=== PATIENT | male | born 1940 | race African-American/Black ===

== ENCOUNTER 2016-05-31 10:14 | Emergency (ER) ==
[2016-05-31] MEDS ORDERED: ASPIRIN PO STA (10:36)
[2016-05-31] MEDS ORDERED: NITROGLYCERIN SL PRN (10:36)
--- NOTE | 2016-05-31 10:41 | EKG Report ---
Test Performed on : 05/31/2016 10:27:02 AM Test Reason : SOB Blood Pressure : / mmHG Vent. Rate : 073 BPM Atrial Rate : 073 BPM P-R Int : 150 ms QRS Dur : 100 ms QT Int : 398 ms P-R-T Axes : 061 009 122 degrees QTc Int : 438 ms Normal sinus rhythm. Possible Inferior infarct , age undetermined Abnormal ECG When compared with ECG of 30-APR-2016 06:32, premature ventricular complexes. are no longer present premature atrial complexes. are no longer present Borderline criteria for Inferior infarct are now present T wave inversion no longer evident in Anterior leads QT has shortened Unconfirmed Result
--- NOTE | 2016-05-31 10:43 | PROVIDER DOCUMENTATION ---
HPI-Cardiac General - General Chief Complaint: Shortness of Breath Stated Complaint: SOB Time Seen by Provider: 05/31/16 10:30 Source: patient Allergies/Adverse Reactions: Patient Allergies Allergy/AdvReac Type Severity Reaction Status Date / Time No Known Allergies Allergy Verified 04/29/16 06:18 Home Medications: Home Medication List Medication Instructions Recorded Confirmed Last Taken Type Cilostazol 100 mg PO BID 04/29/16 05/31/16 05/31/16 08:00 History Cyclobenzaprine [Flexeril] 10 mg PO QAM 04/29/16 05/31/16 05/31/16 08:00 History Donepezil [Aricept] 5 mg PO QHS 04/29/16 05/31/16 05/30/16 20:00 History Furosemide [Lasix] 40 mg PO QAM 04/29/16 05/31/16 05/31/16 08:00 History Hydrocodone/Acetaminophen [[place] 1 each PO TID 04/29/16 05/31/16 05/31/16 08:00 History 10-325 Tablet] Insulin Detemir [Levemir] 60 units SUBQ QA 04/29/16 05/31/16 05/30/16 08:00 History Isosorbide Mononitrate E.r. [Imdur] 60 mg PO QAM 04/29/16 05/31/16 05/31/16 08: 00 History Metformin [Glucophage] 2,000 mg PO QAM 04/29/16 05/31/16 05/31/16 08:00 History Metoprolol Succinate E.r. [Toprol 100 mg PO QAM 04/29/16 05/31/16 05/31/16 08: 00 History Xl] Omeprazole 40 mg PO QAM 04/29/16 05/31/16 05/31/16 08:00 History Potassium Chloride 1 tab PO QAM 04/29/16 05/31/16 05/31/16 07:00 History Pravastatin Sodium 80 mg PO QHS 04/29/16 05/31/16 05/31/16 07:00 History Sertraline HCl [Zoloft] 100 mg PO QAM 04/29/16 05/31/16 05/31/16 07:00 History Tamsulosin [Flomax] 0.4 mg PO DAILY 04/29/16 05/31/16 05/31/16 07:00 History Valsartan [Diovan] 320 mg PO QAM 04/29/16 05/31/16 05/31/16 07:00 History Amiodarone [Cordarone] 200 mg PO BID 05/31/16 05/31/16 05/31/16 08:00 History Rivaroxaban [Xarelto] 10 mg PO DAILY 05/31/16 05/31/16 05/31/16 08:00 History - History of Present Illness-Cardiac Nature of Presenting Problem: Had CABG 10 days ago. About 1 week ago began to develop dyspnea with extertion. Has cough, no CP , no fever., no abdominal pain Quality of Pain: reports: none Onset/Duration: 1 week ago (onset shortness of breath) Context/Activities at Onset: reports: light activity History of arrythmia: reports: A-Fib Nitro Today/Relief: reports: no nitro taken today Review of Systems - Adult - REVIEW OF SYSTEMS - ADULT Constitutional: reports: no symptoms reported Eyes: reports: no symptoms reported Ears, Nose, Mouth & Throat: reports: no symptoms reported Cardiovascular: reports: see HPI (recent CABG) Respiratory: reports: cough, shortness of breath Gastrointestinal: reports: no symptoms reported Genitourinary: reports: no symptoms reported Musculoskeletal: reports: no symptoms reported Integumentary: reports: no symptoms reported Past History - Adult - PAST MEDICAL HISTORY-ADULT Review of Records: reports: Old Records Reviewed, Medications Reviewed Major Childhood Illnesses: reports: denies history Cardiovascular: reports: cardiac disease, A-Fib (in past), HTN, hyperlipidemia Respiratory: reports: COPD Gastrointestinal: reports: denies history Obstetrical/Gynecological: reports: denies history Genitourinary: reports: denies history Musculoskeletal: reports: chronic pain, neck/back injury, orthopedic injury Neurological: reports: denies history Psychiatric: reports: denies history Endocrine/Immune: reports: Diabetes Other Conditions: reports: denies history - PRIOR SURGERIES/PROCEDURES Surgical/Procedure History: reports: orthopedic (extremity) (knee surgery), back /neck (back) - PRIOR HOSPITALIZATIONS Prior Hospitalizations: reports: for similar symptoms - IMMUNIZATION STATUS Childhood Immunizations: See Nurse Assessment Flu Vaccine: See Nurse Assessment - FAMILY HISTORY Family History: reviewed, not pertinent Physical Exam-General - PHYSICAL EXAM-ADULT Initial Vital Signs Reviewed: Yes - CONSTITUTIONAL General Appearance: appears well, alert, no apparent distress - EYES Eyes: PERRL/EOMI - HEAD, EARS, NOSE, MOUTH & THROAT HENMT: normocephalic/atraumatic, normal ENT inspection - NECK Neck: non-tender, full range of motion, supple, normal inspection - RESPIRATORY Respiratory: chest non-tender, decreased breath sounds (B) - CARDIOVASCULAR Cardiovascular: regular rate, rhythm, no edema, no gallop, no murmur - GASTROINTESTINAL (ABDOMEN) Abdominal Exam: normal bowel sounds, non tender, soft, no organomegaly - GENITOURINARY Male Genitalia: deferred Rectal Exam: deferred - LYMPHATIC Lymphatic: no adenopathy - MUSCULOSKELETAL Back Exam: normal inspection, no CVA tenderness, no vertebral tenderness Extremity: normal range of motion, non-tender, normal inspection, no pedal edema - NEUROLOGIC Neurologic: grossly normal, no motor/sensory deficits Progress - PLAN OF CARE/RESULTS Progress/Plan/Lab Results: Laboratory Tests 05/31/16 05/31/16 05/31/16 11:39 11:39 11:39 WBC 5.24 RBC 3.76 L Hgb 9.9 L Hct 33.5 L MCV 89.1 MCH 26.3 L MCHC 29.6 L RDW Std Deviation 15.8 H Plt Count 298 MPV 9.8 Immature Gran % (Auto) 0.0 Neut % (Auto) 72.0 Lymph % (Auto) 17.7 L [place] % (Auto) 7.6 Eos % (Auto) 2.5 Baso % (Auto) 0.2 Immature Gran # (Auto) 0.00 Neut # (Auto) 3.77 Lymph # (Auto) 0.93 L [place] # (Auto) 0.40 Eos # (Auto) 0.13 Baso # (Auto) 0.01 PT INR PTT (Actin FS) D-Dimer 2.01 H Sodium 137 Potassium 3.5 Chloride 97 L Carbon Dioxide 28 Anion Gap 12 BUN 9 Creatinine 0.5 L Estimated GFR/1.73 m2 > 60 BUN/Creatinine Ratio 18 Glucose 126 H Calculated Osmolality 274 Calcium 8.9 Magnesium 1.8 Total Bilirubin 0.62 AST 23 ALT 26 Alkaline Phosphatase 74 Creatine Kinase 69 Troponin T Yys-D-Aedorqaebna Pept Total Protein 6.4 Albumin 3.5 Globulin 2.9 Albumin/Globulin Ratio 1.2 0305/31/16 05/31/16 11:39 11:39 11:39 WBC RBC Hgb Hct MCV MCH MCHC RDW Std Deviation Plt Count MPV Immature Gran % (Auto) Neut % (Auto) Lymph % (Auto) [place] % (Auto) Eos % (Auto) Baso % (Auto) Immature Gran # (Auto) Neut # (Auto) Lymph # (Auto) [place] # (Auto) Eos # (Auto) Baso # (Auto) PT 13.0 H INR 1.22 PTT (Actin FS) 30.1 D-Dimer Sodium Potassium Chloride Carbon Dioxide Anion Gap BUN Creatinine Estimated GFR/1.73 m2 BUN/Creatinine Ratio Glucose Calculated Osmolality Calcium Magnesium Total Bilirubin AST ALT Alkaline Phosphatase Creatine Kinase Troponin T < 0.010 Qvw-A-Yvknmehtkyy Pept 1156 H Total Protein Albumin Globulin Albumin/Globulin Ratio Orders Category Date Time Status Blood Glucose Finger Stick [FSBS/Accucheck Result] NOW Care 05/31/16 11:57 Active Cardiac Monitoring DIRECTED Care 05/31/16 10:37 Active Oxygen Therapy- ED Nursing DIRECTED Care 05/31/16 10:37 Active Saline Loc NOW Care 05/31/16 10:37 Active CHEST-PORTABLE [RAD] Stat Exams 05/31/16 10:39 Draft CBC WITH ELECTRONIC DIFF [HEME] Stat Lab 05/31/16 11:39 Completed CK PROFILE [SP CHEM] Stat Lab 05/31/16 11:39 Completed COMPREHENSIVE METABOLIC PANEL [CHEM] Stat Lab 05/31/16 11:39 Completed D-DIMER [CHEM] Stat Lab 05/31/16 11:39 Completed MAGNESIUM [CHEM] Stat Lab 05/31/16 11:39 Completed PRO B-NATRIURETIC PEPTIDE Stat Lab 05/31/16 11:39 Completed PROTIME WITH INR [COAG] Stat Lab 05/31/16 11:39 Completed PTT [COAG] Stat Lab 05/31/16 11:39 Completed TROPONIN T Stat Lab 05/31/16 11:39 Completed Aspirin Med 05/31/16 10:36 Discontinued 325 mg PO STAT STA Furosemide [Lasix] Med 05/31/16 11:22 Discontinued 40 mg IV NOW ONE Nitroglycerin Sl [Nitroglycerin] Med 05/31/16 10:36 Active 0.4 mg SL Q5M PRN PRN EKG [EKG] Stat Ther 05/31/16 10:22 Draft Vital Signs Temp Pulse Resp BP Pulse Ox 05/31/16 12:40 75 16 141/76 99 05/31/16 10:17 97.8 F 73 22 167/76 100 No Known Allergies Allergy (Verified 04/29/16 06:18) Cilostazol 100 mg PO BID 04/29/16 Cyclobenzaprine [Flexeril] 10 mg PO QAM 04/29/16 Donepezil [Aricept] 5 mg PO QHS 04/29/16 Furosemide [Lasix] 40 mg PO QAM 04/29/16 Hydrocodone/Acetaminophen [[place] 10-325 Tablet] 1 each PO TID 04/29/16 Insulin Detemir [Levemir] 60 units SUBQ QA 04/29/16 Isosorbide Mononitrate E.r. [Imdur] 60 mg PO QAM 04/29/16 Metformin [Glucophage] 2,000 mg PO QAM 04/29/16 Metoprolol Succinate E.r. [Toprol Xl] 100 mg PO QAM 04/29/16 Omeprazole 40 mg PO QAM 04/29/16 Potassium Chloride 1 tab PO QAM 04/29/16 Pravastatin Sodium 80 mg PO QHS 04/29/16 Sertraline HCl [Zoloft] 100 mg PO QAM 04/29/16 Tamsulosin [Flomax] 0.4 mg PO DAILY 04/29/16 Valsartan [Diovan] 320 mg PO QAM 04/29/16 Amiodarone [Cordarone] 200 mg PO BID 05/31/16 Rivaroxaban [Xarelto] 10 mg PO DAILY 05/31/16 Laboratory 05/31/16 05/31/16 05/31/16 11:39 11:39 11:39 WBC RBC Hgb Hct MCV MCH MCHC RDW Std Deviation Plt Count MPV Immature Gran % (Auto) Neut % (Auto) Lymph % (Auto) [place] % (Auto) Eos % (Auto) Baso % (Auto) Immature Gran # (Auto) Neut # (Auto) Lymph # (Auto) [place] # (Auto) Eos # (Auto) Baso # (Auto) PT 13.0 H INR 1.22 PTT (Actin FS) 30.1 D-Dimer Sodium Potassium Chloride Carbon Dioxide Anion Gap BUN Creatinine Estimated GFR/1.73 m2 BUN/Creatinine Ratio Glucose Calculated Osmolality Calcium Magnesium Total Bilirubin AST ALT Alkaline Phosphatase Creatine Kinase Troponin T < 0.010 Vyl-K-Gyeuqfejagr Pept 1156 H Total Protein Albumin Globulin Albumin/Globulin Ratio 05/31/16 05/31/16 05/31/16 11:39 11:39 11:39 WBC 5.24 RBC 3.76 L Hgb 9.9 L Hct 33.5 L MCV 89.1 MCH 26.3 L MCHC 29.6 L RDW Std Deviation 15.8 H Plt Count 298 MPV 9.8 Immature Gran % (Auto) 0.0 Neut % (Auto) 72.0 Lymph % (Auto) 17.7 L [place] % (Auto) 7.6 Eos % (Auto) 2.5 Baso % (Auto) 0.2 Immature Gran # (Auto) 0.00 Neut # (Auto) 3.77 Lymph # (Auto) 0.93 L [place] # (Auto) 0.40 Eos # (Auto) 0.13 Baso # (Auto) 0.01 PT INR PTT (Actin FS) D-Dimer 2.01 H Sodium 137 Potassium 3.5 Chloride 97 L Carbon Dioxide 28 Anion Gap 12 BUN 9 Creatinine 0.5 L Estimated GFR/1.73 m2 > 60 BUN/Creatinine Ratio 18 Glucose 126 H Calculated Osmolality 274 Calcium 8.9 Magnesium 1.8 Total Bilirubin 0.62 AST 23 ALT 26 Alkaline Phosphatase 74 Creatine Kinase 69 Troponin T Gwv-A-Jclztcvfxcv Pept Total Protein 6.4 Albumin 3.5 Globulin 2.9 Albumin/Globulin Ratio 1.2 - EKG 1 Time of EKG reading by physician:: 10:40 EKG Read and Signed by:: Sunshine Forbes Rate: 73 Rhythm: nsr [place]: normal QRS: normal [place] Interval: normal ST Wave: non-specific ST changes - XRAY 1 XRAY Study: Chest (cardiomegally) Impression: Abnormal XRAY Interpretation: cardiomegally, pulmonary edema - CONSULTS/PCP/HOSPITALIST Notification #1 *Consult/PCP/Hospitalist*: Dr Mirza's [employer] [facility]- [facility] [facility] surgery Time Discussed: 13:20 Reason/Comments: transfer to [facility] ER #2 Consult: Dr Marcus [facility] Time Discussed: 13:20 Reason/Comments: will accept patient in transfer, awaiting bed for admit to Dr Mirza - CHANGE OF SHIFT REPORT (ED Provider) Tentative Impression of Patient: 10 days post CABG with increasing SOB- CHF. Improving after IV lasix Departure - Departure Time of Disposition Order: 13:23 DIAGNOSIS: SOB (shortness of breath), Congestive heart failure Disposition: ACUTE [facility] 02 Certified Medical Emergency: Emergent Condition: Serious Referrals: Shirley Roa MD [Primary Care Provider] -
[2016-05-31] MEDS ORDERED: LASIX IV ONE (11:22)
[2016-05-31 12:10] LABS: MANUAL DIFF NEEDED? NO
[2016-05-31 12:16] LABS: BASO% 0.2 % (0.0-0.8); EOS# 0.13 X1000 (0.0-0.7); EOS% 2.5 % (0.0-10.0); HEMATOCRIT 33.5 % (42.0-52.0); HEMOGLOBIN 9.9 g/dL (14.0-18.0); LYMPH# 0.93 X1000 (1.2-3.4); LYMPH% 17.7 % (20.5-51.1); MCH 26.3 PG (27-31); MCHC 29.6 g/dL (33-37); MCV 89.1 FL (81-99); MONO% 7.6 % (1.7-9.3); MPV 9.8 FL (7.4-10.4); PLT 298 X1000 (130-400); RBC 3.76 XMIL (4.7-6.1)
--- NOTE | 2016-05-31 12:17 | Diag Imaging Result Document ---
PROCEDURE NAME: CHEST-PORTABLE - 05/31/2016 PORTABLE CHEST: COMPARISON: 04/30/2016. FINDINGS: Sternal wires are present. The heart is enlarged. There are increased interstitial markings believed to be a combination of pulmonary venous and possible fibrosis or atelectasis. There may be a small left effusion. IMPRESSION: Cardiomegaly with pulmonary edema.
[2016-05-31 12:27] LABS: INR 1.22; PTT 30.1 Seconds (22.0-36.0)
[2016-05-31 12:36] LABS: AGAP 12; ALBUMIN 3.5 g/dL (3.5-5.0); ALKALINE PHOSPHATASE 74 U/L (32-122); BUN 9 mg/dL (8-22); CALCIUM 8.9 mg/dL (8.8-10.2); CHLORIDE 97 mmol/L (98-107); CK PROFILE 69 U/L (24-204); COSMO 274; GOT 23 U/L (10-34); GPT 26 U/L (10-44); MAGNESIUM 1.8 mg/dL (1.5-2.7); POTASSIUM 3.5 mmol/L (3.5-5.1); SODIUM 137 mmol/L (136-145); TCO2 28 mmol/L (25-35); TOTAL BILIRUBIN 0.62 mg/dL (0.20-1.00); TOTAL PROTEIN 6.4 g/dL (6.3-8.3)
[2016-05-31 13:33] VITALS: BP 128/71
[2016-05-31] MEDS ORDERED: NS 500 ML IV ONE (14:05)
[2016-05-31] MEDS ORDERED: NS 500 ML ONE (14:07)
== END 2016-05-31 14:16 | disposition short-term general hospital (02) ==
LOC: ED 10:14
DX: I50.9 Heart failure, unspecified (principal); R06.02 Shortness of breath; I51.7 Cardiomegaly; Z95.1 Presence of aortocoronary bypass graft; I48.91 Unspecified atrial fibrillation; R06.09 Other forms of dyspnea; R05 Cough; I10 Essential (primary) hypertension; Z79.899 Other long term (current) drug therapy; E78.5 Hyperlipidemia, unspecified; J44.9 Chronic obstructive pulmonary disease, unspecified; G89.29 Other chronic pain; E11.9 Type 2 diabetes mellitus without complications; Z79.01 Long term (current) use of anticoagulants
CPT/HCPCS: 71010; 80053; 82550; 82948; 83735; 83880; 84484; 85025; 85379; 85610; 85730; 93005; 96374; J1940; J7040

== ENCOUNTER 2016-07-16 12:50 | Inpatient (IN) ==
[2016-07-16] MEDS ORDERED: ASPIRIN PO STA (13:04)
[2016-07-16 13:29] LABS: MANUAL DIFF NEEDED? NO
[2016-07-16 13:32] LABS: BASO% 0.4 % (0.0-0.8); EOS# 0.12 X1000 (0.0-0.7); EOS% 2.2 % (0.0-10.0); HEMATOCRIT 36.4 % (42.0-52.0); HEMOGLOBIN 10.8 g/dL (14.0-18.0); LYMPH# 1.18 X1000 (1.2-3.4); LYMPH% 21.3 % (20.5-51.1); MCH 25.8 PG (27-31); MCHC 29.7 g/dL (33-37); MCV 86.9 FL (81-99); MONO# 0.43 X1000 (0.11-0.59); MONO% 7.8 % (1.7-9.3); MPV 10.9 FL (7.4-10.4); NEUT% 68.3 % (42.2-75.2); PLT 221 X1000 (130-400); RBC 4.19 XMIL (4.7-6.1)
[2016-07-16 14:02] LABS: AGAP 13; ALBUMIN 3.6 g/dL (3.5-5.0); ALKALINE PHOSPHATASE 70 U/L (32-122); BUN 10 mg/dL (8-22); CALCIUM 9.1 mg/dL (8.8-10.2); CHLORIDE 105 mmol/L (98-107); CK PROFILE 97 U/L (24-204); COSMO 290; GOT 22 U/L (10-34); GPT 27 U/L (10-44); MAGNESIUM 1.8 mg/dL (1.5-2.7); POTASSIUM 3.3 mmol/L (3.5-5.1); SODIUM 145 mmol/L (136-145); TCO2 27 mmol/L (25-35); TOTAL BILIRUBIN 0.73 mg/dL (0.20-1.00); TOTAL PROTEIN 6.6 g/dL (6.3-8.3)
--- NOTE | 2016-07-16 14:24 | EKG Report ---
Test Performed on : 07/16/2016 12:55:47 PM Test Reason : Chest Pain Blood Pressure : / mmHG Vent. Rate : 103 BPM Atrial Rate : 100 BPM P-R Int : 000 ms QRS Dur : 100 ms QT Int : 362 ms P-R-T Axes : 000 015 192 degrees QTc Int : 474 ms Undetermined rhythm Cannot rule out Inferior infarct , age undetermined Abnormal ECG When compared with ECG of 03-JUL-2016 01:39, Current undetermined rhythm precludes rhythm comparison, needs review Unconfirmed Result
[2016-07-16] MEDS ORDERED: LASIX IV ONE (14:34)
[2016-07-16] MEDS ORDERED: POTASSIUM CHLORIDE 20% LIQUID PO ONE (14:36)
--- NOTE | 2016-07-16 14:51 | Diag Imaging Result Document ---
PROCEDURE NAME: CHEST-2 VIEWS - 07/16/2016 FRONTAL AND LATERAL CHEST, 2 VIEWS. COMPARISON: Compared to 05/31/2016. FINDINGS: Sternal wires are present. The heart remains enlarged. The vessels are less distended. There are small pleural effusions. No consolidation. IMPRESSION: Cardiomegaly, but decreased pulmonary edema. [facility]
[2016-07-16] MEDS ORDERED: ALDACTONE PO ONE (14:57)
--- NOTE | 2016-07-16 14:59 | PROVIDER DOCUMENTATION ---
This chart was entered by Gagandeep Hernandez Scribe, acting as scribe for Olvin Moreno MD. HPI-Respiratory General - General Chief Complaint: Shortness of Breath Stated Complaint: elevated heart rate Time Seen by Provider: 07/16/16 13:01 Source: patient Allergies/Adverse Reactions: Patient Allergies Allergy/AdvReac Type Severity Reaction Status Date / Time No Known Allergies Allergy Verified 07/16/16 13:25 Home Medications: Home Medication List Medication Instructions Recorded Confirmed Last Taken Type Donepezil [Aricept] 5 mg PO QHS 04/29/16 07/16/16 07/02/16 History Furosemide [Lasix] 40 mg PO QAM 04/29/16 07/16/16 07/02/16 History Insulin Detemir [Levemir] 60 units SUBQ QAM 04/29/16 07/16/16 07/02/16 History Omeprazole 40 mg PO QAM 04/29/16 07/16/16 07/02/16 History Potassium Chloride 10 meq PO QAM 04/29/16 07/16/16 07/02/16 History Pravastatin Sodium 80 mg PO QHS 04/29/16 07/16/16 07/02/16 History Sertraline HCl [Zoloft] 100 mg PO QAM 04/29/16 07/16/16 07/02/16 History Tamsulosin [Flomax] 0.4 mg PO QAM 04/29/16 07/16/16 07/02/16 History Rivaroxaban [Xarelto] 15 mg PO HS 05/31/16 07/16/16 07/02/16 History Aspirin 81 mg PO QAM 07/03/16 07/16/16 07/02/16 History Cephalexin [Keflex] 500 mg PO BID 07/03/16 07/16/16 07/02/16 History Insulin Detemir [Levemir] 60 unit SUBQ QAM 07/03/16 07/16/16 07/02/16 History Iron,Carbonyl/Vit C/Vit B12/FA [Fe 1 each PO BID 07/03/16 07/16/16 07/02/16 History C Plus Tablet] Lisinopril 2.5 mg PO HS 07/03/16 07/16/16 07/02/16 History Metoprolol [Lopressor] 25 mg PO BID 07/03/16 07/16/16 07/02/16 History - History of Present Illness-Resp Nature of Presenting Problem: PT C/O SOB WHILE WALKING ACROSS THE ROOM ONSET 2 MONTHS AGO ALSO C/O PALPITATIONS. Quality of Pain: reports: none Severity in ED: reports: mild Onset/Duration: reports: other (2 MONTHS) Timing: reports: still present Cough Quality/Degree: reports: no cough Episode Frequency: no prior episodes Current Respiratory Medication Therapy: Initiated none Modifying Factors: improves with: exertion Associated Symptoms: reports: shortness of breath. denies: chest pain/soreness , fever/chills, wheezing Similar Symptoms Previously?: No Recently seen or treated by another doctor?: No Review of Systems - Adult - REVIEW OF SYSTEMS - ADULT Constitutional: denies: chills, fever, night sweats Ears, Nose, Mouth & Throat: denies: ear pain, nose pain, throat pain Cardiovascular: reports: irregular heart rate, palpitations. denies: chest pain Respiratory: reports: shortness of breath. denies: cough, wheezing Gastrointestinal: denies: abdominal pain, diarrhea, nausea, vomiting Genitourinary: denies: dysuria, flank pain, hematuria Musculoskeletal: denies: back pain, joint pain, neck pain Integumentary: denies: hives, itching, rash Neurological: denies: headache/migraines, numbness, tremors All Other Systems: Reviewed and Negative Past History - Adult - PAST MEDICAL HISTORY-ADULT Review of Records: reports: Nursing Assessment Review, Medications Reviewed Cardiovascular: reports: cardiac disease, A-Fib (in past), HTN, hyperlipidemia Respiratory: reports: COPD Musculoskeletal: reports: chronic pain, neck/back injury, orthopedic injury Neurological: reports: CVA Endocrine/Immune: reports: Diabetes - PRIOR SURGERIES/PROCEDURES Surgical/Procedure History: reports: CABG, cholecystectomy, orthopedic ( extremity) (knee surgery), back/neck (back) - PRIOR HOSPITALIZATIONS Prior Hospitalizations: reports: for similar symptoms - IMMUNIZATION STATUS Childhood Immunizations: See Nurse Assessment Flu Vaccine: See Nurse Assessment - FAMILY HISTORY Family History: reviewed, not pertinent - SOCIAL HISTORY Smoking: denies Substance Use: none/never Alcohol Use Frequency: never Living Situation: family Physical Exam-General - PHYSICAL EXAM-ADULT Initial Vital Signs Reviewed: Yes - CONSTITUTIONAL General Appearance: appears well, alert, no apparent distress - HEAD, EARS, NOSE, MOUTH & THROAT HENMT: normocephalic/atraumatic, moist mucous membranes, normal ENT inspection - NECK Neck: non-tender, full range of motion, supple, normal inspection - RESPIRATORY Respiratory: chest non-tender, lungs clear, normal breath sounds, no pleuratic chest pain, no respiratory distress, no accessory muscle use - CARDIOVASCULAR Cardiovascular: normal peripheral pulses, no edema, no gallop, no JVD, no murmur , irregularly irregular - GASTROINTESTINAL (ABDOMEN) Abdominal Exam: normal bowel sounds, non tender, soft, no organomegaly, no pulsatile mass - LYMPHATIC Lymphatic: no adenopathy - MUSCULOSKELETAL Back Exam: normal inspection, no CVA tenderness, no vertebral tenderness Extremity: normal range of motion, non-tender, normal gait, normal inspection, no pedal edema, no calf tenderness, normal capillary refill, pelvis stable - SKIN Integumentary: normal color, normal turgor, warm/dry - PSYCHIATRIC Psych/Mental Status: normal mood/affect, normal thought content, normal thought process, oriented x 3 Progress - PLAN OF CARE/RESULTS Progress/Plan/Lab Results: Vital Signs - 8 hr 07/16/16 12:52 Temperature 98.1 F Pulse Rate 67 Respiratory Rate 20 Blood Pressure 150/93 O2 Sat by Pulse Oximetry 98 Laboratory Results - last 24 hr 07/16/16 07/16/16 07/16/16 13:15 13:15 13:15 WBC 5.53 RBC 4.19 L Hgb 10.8 L Hct 36.4 L MCV 86.9 MCH 25.8 L MCHC 29.7 L RDW Std Deviation 16.6 H Plt Count 221 MPV 10.9 H Immature Gran % (Auto) 0.0 Neut % (Auto) 68.3 Lymph % (Auto) 21.3 [place] % (Auto) 7.8 Eos % (Auto) 2.2 Baso % (Auto) 0.4 Immature Gran # (Auto) 0.00 Neut # (Auto) 3.78 Lymph # (Auto) 1.18 L [place] # (Auto) 0.43 Eos # (Auto) 0.12 Baso # (Auto) 0.02 D-Dimer 0.34 Sodium 145 Potassium 3.3 L Chloride 105 Carbon Dioxide 27 Anion Gap 13 BUN 10 Creatinine 0.5 L Estimated GFR/1.73 m2 > 60 BUN/Creatinine Ratio 20 Glucose 143 H Calculated Osmolality 290 Calcium 9.1 Magnesium 1.8 Total Bilirubin 0.73 AST 22 ALT 27 Alkaline Phosphatase 70 Creatine Kinase 97 Troponin T Tmq-F-Uznzzjpqgjj Pept Total Protein 6.6 Albumin 3.6 Globulin 3.0 Albumin/Globulin Ratio 1.2 07/16/16 07/16/16 13:15 13:15 WBC RBC Hgb Hct MCV MCH MCHC RDW Std Deviation Plt Count MPV Immature Gran % (Auto) Neut % (Auto) Lymph % (Auto) [place] % (Auto) Eos % (Auto) Baso % (Auto) Immature Gran # (Auto) Neut # (Auto) Lymph # (Auto) [place] # (Auto) Eos # (Auto) Baso # (Auto) D-Dimer Sodium Potassium Chloride Carbon Dioxide Anion Gap BUN Creatinine Estimated GFR/1.73 m2 BUN/Creatinine Ratio Glucose Calculated Osmolality Calcium Magnesium Total Bilirubin AST ALT Alkaline Phosphatase Creatine Kinase Troponin T < 0.010 Fop-F-Roqakzjdnjt Pept 1398 H Total Protein Albumin Globulin Albumin/Globulin Ratio Orders Category Date Time Status Cardiac Monitoring DIRECTED Care 07/16/16 13:04 Active Oxygen Therapy- ED Nursing DIRECTED Care 07/16/16 13:04 Active Saline Loc NOW Care 07/16/16 13:04 Active CHEST-2 VIEWS [RAD] Stat Exams 07/16/16 13:04 Draft CBC WITH ELECTRONIC DIFF [HEME] Stat Lab 07/16/16 13:15 Completed CK PROFILE [SP CHEM] Stat Lab 07/16/16 13:15 Completed COMPREHENSIVE METABOLIC PANEL [CHEM] Stat Lab 07/16/16 13:15 Completed D-DIMER [CHEM] Stat Lab 07/16/16 13:15 Completed MAGNESIUM [CHEM] Stat Lab 07/16/16 13:15 Completed PRO B-NATRIURETIC PEPTIDE Stat Lab 07/16/16 13:15 Completed TROPONIN T Stat Lab 07/16/16 13:15 Completed Aspirin Med 07/16/16 13:04 Discontinued 325 mg PO STAT STA Furosemide [Lasix] Med 07/16/16 14:34 Discontinued 60 mg IV NOW ONE Potassium Chloride 20% Liquid Med 07/16/16 14:36 Discontinued 40 meq PO NOW ONE Spironolactone [Aldactone] Med 07/16/16 14:57 Once 25 mg PO NOW ONE EKG [EKG] Stat Ther 07/16/16 13:04 Draft Result Diagrams: 07/16/16 13:15 07/16/16 13:15 - REASSESSMENT Reassessment #1 Time Reassessed: 14:56 Status: unchanged - EKG 1 Time of EKG reading by physician:: 12:55 EKG Read and Signed by:: Olvin Moreno EKG Interpretation (*Must complete 3 of following elements*): Abnormal Rate: 103 Rhythm: 2ND DEGREE TYPE 1 [place]: normal QRS: normal ST Wave: normal - CONSULTS/PCP/HOSPITALIST Notification #1 *Consult/PCP/Hospitalist*: Dr Carrillo Time Discussed: 14:57 Reason/Comments: he prefers to admit patient and see him in counsultation Departure - Departure Time of Disposition Decision: 14:58 DIAGNOSIS: Second degree heart block CHF (congestive heart failure), NYHA class II Qualifiers: Congestive heart failure type: diastolic Congestive heart failure chronicity: chronic Qualified Code(s): I50.32 - Chronic diastolic (congestive) heart failure Disposition: HOME 01 Certified Medical Emergency: Emergent Condition: Stable Referrals and Follow-Ups: Shirley Roa MD [Primary Care Provider] - - Critical Care Note This patient required my direct & personal management of CC.: No This chart was documented by the indicated scribe, (Gagandeep Hernandez Scribe) and accurately reflects the services I performed and decisions made by me, Olvin Moreno MD, as attested by the provider's signature.
[2016-07-16] MEDS ORDERED: SALINE LOCK IV FLUID XX ONE (18:02)
[2016-07-16] MEDS ORDERED: DUONEB (A & A) INH PRN (18:33)
[2016-07-16] MEDS: DUONEB (A & A) INH SCH ×2 (19:40→23:05)
[2016-07-16 19:49] LABS: HEMOGLOBIN A1C 6.2 % (4.8-6.0)
--- NOTE | 2016-07-16 20:04 | HISTORY AND PHYSICAL ---
PRIMARY CARE PHYSICIAN: Shirley Roa MD. COLOR ROOM ATTENDANT: Dr. Bertarm Magdaleno at [facility]. CHIEF COMPLAINT: Shortness of breath. HISTORY OF PRESENT ILLNESS: Mr. Austin is a 75-year-old male with a history of what looks to be a chronic atrial fibrillation, hypertension, COPD with nocturnal oxygen and severe CAD who recently had a CABG done at [facility] in April of this year who presents with progressive shortness of breath and weight gain over the past few days. He denies any chest pain, but reports that he has become progressively short of breath with increased abdominal distention over the past 3-4 days. He denies any lower extremity edema, but reports orthopnea. He denies any fevers or chills. He does report cough with clear sputum production. He denies any palpitations. No abdominal pain, no dysuria and no diarrhea. He came to the ER today for his shortness of breath and weight gain. His chest x-ray showed some pulmonary vascular congestion with cardiomegaly. His proBNP was noted to be almost 1400. He was given IV Lasix in the ER and is now going to be admitted for congestive heart failure exacerbation. His initial set of cardiac enzymes are negative. PAST MEDICAL HISTORY: 1. Severe CAD status post CABG in April of this year. 2. COPD on home O2 at night. 3. Congestive heart failure, diastolic, with last EF on heart catheterization of 50%. 4. Hypertension. 5. Diabetes. 6. Hyperlipidemia. 7. History of intracranial bleed. 8. Atrial fibrillation. 9. GERD. 10. Iron deficiency anemia. PAST SURGICAL HISTORY: 1. CABG. 2. Left knee arthroplasty. 3. Multiple back surgeries. 4. Cholecystectomy. 5. Cataract surgery. SOCIAL HISTORY: Patient quit smoking 13 or 14 years ago. He denies alcohol or drug use. His is at the bedside. He is retired. FAMILY HISTORY: Significant for CAD, DE, stomach cancer and diabetes. REVIEW OF SYSTEMS: Fourteen-point review of systems obtained and found to be negative with the exception of the HPI. ALLERGIES: No known drug allergies. HOME MEDICATIONS: Aspirin 81 mg daily. Aricept 5 mg at bedtime, Lasix 40 mg a.m., Levemir 60 units subcutaneous a.m., Icar C, 1 b.i.d., lisinopril 2.5 mg at bedtime, Lopressor 25 mg b.i.d., Omeprazole 40 mg a.m., KCl 10 mEq p.o. a.m., pravastatin 80 mg at bedtime, Xarelto 15 mg at bedtime, Zoloft 100 mg a.m., Flomax 0.4 mg a.m. PHYSICAL EXAMINATION: VITAL SIGNS: Blood pressure is 135/81, heart rate 74, respiratory rate 18, O2 saturation 100% on 2 L nasal cannula. Temperature is 98 degrees. GENERAL: This is an obese male, lying in hospital bed in no acute distress. NEUROLOGIC: Nonfocal. The patient is awake and alert. HEENT: Head is atraumatic and normocephalic. His pupils are equal, round, reactive to light. Oral mucosa is moist. Trachea is midline. CHEST: Diminished at the bases with crackles bilaterally. CARDIOVASCULAR: Regularly irregular rate and rhythm. S1-S2 is noted. GI: Slightly distended, but soft. Nontender to palpation. Bowel sounds are hypoactive. EXTREMITIES: Trace edema. Pulses diminished, but palpable bilaterally. DIAGNOSTIC DATA: Chest x-ray, increased pulmonary vascular congestion with cardiomegaly, although inspiration is suboptimal. EKG shows atrial flutter versus fibrillation. WBC 5.53, hemoglobin 10.8, hematocrit 36.4, platelet count 221,000, D-dimer 0.34, sodium 145, potassium 3.3, chloride 105, CO2 27, anion gap 13, BUN 10, creatinine is 0.5, glucose 143, calcium 9.1, magnesium 1.8. LFTs within normal limits. Troponin and CKs are normal. ProBNP 1398, albumin 3.6. ASSESSMENT AND PLAN: 1. Acute on chronic heart failure: We will continue IV diuresis to an edema free state. Follow strict input and output and daily weights. We will consult Cardiology and recheck an echocardiogram given the fact that he has had recent bypass surgery. We will continue to trend his enzymes and continue his home medications. 2. Diabetes mellitus: We will continue his home medications and add pattern blood sugars and sliding scale insulin. We will also recheck a hemoglobin A1c. 3. Chronic obstructive pulmonary disease: Currently not in exacerbation. We will continue at bedtime at bedtime O2 and add p.r.n. medications. 4. Iron deficiency anemia: Chronic and stable, continue his Icar C. 5. Gastroesophageal reflux disease: Chronic and stable, continue his omeprazole. 6. Atrial fibrillation/flutter: Continue his rate control with metoprolol and anticoagulation with Xarelto. 7. Deep venous thrombosis prophylaxis is provided with his Xarelto. Further recommendations to follow. Dictated by RAHEEM Grant for Franki Hyde MD cc: RAHEEM Grant MD James Murphy, MD
[2016-07-16] MEDS: PRAVACHOL PO SCH (21:04)
[2016-07-16] MEDS: XARELTO PO SCH (21:04)
[2016-07-16] MEDS: LOPRESSOR PO SCH (21:04)
[2016-07-16] MEDS: PRINIVIL PO SCH (21:04)
[2016-07-16] MEDS: ARICEPT PO SCH (21:04)
[2016-07-16] MEDS: ICAR-C PLUS PO SCH (21:05)
[2016-07-16] MEDS: HUMALOG SUBQ SCH (23:09)
[2016-07-17] MEDS: DUONEB (A & A) INH SCH ×6 (03:30→23:10)
[2016-07-17] MEDS: LASIX IV SCH ×2 (06:00→17:07)
[2016-07-17] MEDS: HUMALOG SUBQ SCH ×4 (06:04→21:10)
[2016-07-17] MEDS ORDERED: INSULIN PEN NEEDLES ONE (06:05)
[2016-07-17 06:58] LABS: HEMATOCRIT 37.3 % (42.0-52.0); HEMOGLOBIN 10.8 g/dL (14.0-18.0); MCH 25.8 PG (27-31); RBC 4.19 XMIL (4.7-6.1)
[2016-07-17 07:08] LABS: AGAP 15; BUN 10 mg/dL (8-22); CALCIUM 9.2 mg/dL (8.8-10.2); CHLORIDE 101 mmol/L (98-107); COSMO 287; POTASSIUM 3.2 mmol/L (3.5-5.1); SODIUM 143 mmol/L (136-145); TCO2 27 mmol/L (25-35)
[2016-07-17 07:15] LABS: HDL 44 mg/dL (35-55); LDL 81 mg/dL; TRIGLYCERIDES 91 mg/dL (39-160); VLDL 18 mg/dL
[2016-07-17] MEDS: ASPIRIN PO SCH (08:08)
[2016-07-17] MEDS: PRILOSEC PO SCH (08:08)
[2016-07-17] MEDS: FLOMAX PO SCH (08:08)
[2016-07-17] MEDS: ZOLOFT PO SCH (08:08)
[2016-07-17] MEDS: LEVEMIR SUBQ SCH (08:09)
[2016-07-17] MEDS: LOPRESSOR PO SCH ×2 (08:09→21:02)
[2016-07-17] MEDS ORDERED: LEVEMIR INSULIN *HA SUBQ SCH (09:00)
[2016-07-17] MEDS ORDERED: CARDIZEM IV ONE (09:57)
[2016-07-17] MEDS ORDERED: CARDIZEM 100 MG/NS 100 MG/100 ML IVPB IV SCH ×2 (09:58→17:23)
[2016-07-17] MEDS: LANOXIN IV SCH ×2 (10:22→12:46)
[2016-07-17] MEDS ORDERED: KLOR-CON PO ONE (10:30)
--- NOTE | 2016-07-17 10:39 | PROGRESS NOTE ---
DATE: 07/17/2016 SUBJECTIVE: Today, Mr. Austin refers to be doing fine. He continues to have some residual shortness of breath. No chest pain. OBJECTIVE: Vital Signs: Blood pressure is 137/87, pulse is 130, respirations are 17, temperature is 98.7 degrees. General Examination: Mr. Austin is a 75-year-old, male. He is in bed, seems in a little bit of respiratory distress. HEENT: Mucosa is pink and moist. Anicteric and acyanotic. Neck: Supple. JVD is positive. Chest: Air entry is bilaterally reduced. There are diffuse bilateral posterior coarse crepitations. Cardiovascular: Irregularly irregular. No murmurs. No rubs. No gallops. Abdomen: Soft, distended, nontender. Questionable mild hepatomegaly with hepatojugular reflux. Extremities: About 1+ pedal edema. 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 There is no focal neurological deficit. Laboratory Data: WBC is 5.32, hemoglobin is 10.8, platelet count is 234,000. Chemistries reviewed. Sodium is 143, potassium is 3.2, chloride is 101, bicarb is 27. A chest x-ray done yesterday shows cardiomegaly with decreased pulmonary edema. EKG done yesterday on presentation did show possible groupings with atrial fibrillation/atrial flutter. CURRENT MEDICATIONS: 1. Aspirin 81 mg. 2. Digoxin 250 IV q.2 hours and then 250 once. 3. Digoxin drip. 4. Lasix 40 IV q.12. 5. Metoprolol 25 b.i.d. 6. Xarelto. ASSESSMENT: 1. Acute respiratory distress, likely secondary to pulmonary edema. 2. Acute on chronic congestive heart failure. The patient had an echocardiogram in June which showed an ejection fraction of 35-40% with global hypokinesis. Subsequently , patient had a left heart catheterization. 3. Coronary artery disease, status post left heart catheterization. 4. Chronic obstructive pulmonary disease, noted. 5. Atrial fibrillation/atrial flutter, currently in rapid ventricular response. PLAN: In general, I think Mr. Austin is stable. Continues to be in atrial fibrillation/atrial flutter with RVR. The patient is going to be transferred from the regular floor to the CCU. He has been started on digoxin and a Cardizem drip. We will continue monitoring his cardiopulmonary status. Cardiology is on board. cc: Franki Hyde MD MTDD
--- NOTE | 2016-07-17 10:46 | EKG Report ---
Test Performed on : 07/17/2016 09:43:54 AM Test Reason : afib Blood Pressure : / mmHG Vent. Rate : 099 BPM Atrial Rate : 267 BPM P-R Int : 000 ms QRS Dur : 106 ms QT Int : 312 ms P-R-T Axes : 000 017 177 degrees QTc Int : 400 ms Atrial flutter. with variable AV block. with premature ventricular or aberrantly conducted complexes . Nonspecific T wave abnormality Abnormal ECG When compared with ECG of 16-JUL-2016 12:55, Previous ECG has undetermined rhythm, needs review QT has shortened Confirmed by Amadou Alvarez MD ([id number]) on 07/18/2016 12:07:28 PM
--- NOTE | 2016-07-17 11:31 | Diag Imaging Result Document ---
PROCEDURE NAME: CT THORAX W/O CONTRAST - 07/17/2016 CT CHEST WITHOUT CONTRAST: COMPARISON: Compared to 04/30/2016. TECHNIQUE: Dose-reduction protocol. FINDINGS: The heart remains enlarged. Trace pleural fluid. No thoracic aortic aneurysm. Severe atherosclerosis. Sternal wires are present. There are calcified right hilar lymph nodes and there is calcified granuloma in the right lower lobe. There is vascular distention. Minimal increased interstitial markings believed to be atelectasis. No consolidation. IMPRESSION: 1. Cardiomegaly with pulmonary edema and trace pleural fluid. 2. There is evidence of a prior granulomatous infection, but no acute pneumonia. 3. Severe atherosclerosis.
[2016-07-17] MEDS ORDERED: MAGNESIUM SULFATE 2 GM/S.W.I. 2 GM/50 ML IVPB IV ONE (12:30)
--- NOTE | 2016-07-17 17:08 | CONSULTATION ---
DATE OF CONSULTATION: 07/17/2016 CONSULTATION REQUESTED BY: Hospitalist Service. REASON FOR CONSULTATION: Shortness of breath, CHF. HISTORY OF PRESENT ILLNESS: Mr. Austin is a 75-year-old black gentleman who is known to the service of Dr. Magdaleno at the [facility]. He presented to the emergency room on 2016 with complaints of increasing dyspnea, shortness of breath, irregular pulse, palpitations, some weakness, some puffiness of the feet. He denied having any chest pain. Upon presentation, a chest x-ray revealed cardiomegaly with some pulmonary edema. A 12-lead EKG done initially showed atrial fibrillation with a rate of 103 beats per minute with possible anterior OK and inferior OK. Initial blood work revealed a pro BNP level of 1398 which is about 6 times baseline. BUN and creatinine were normal. White count was normal. Hemoglobin 10.8. The patient was given Lasix, oxygen, has been diuresing overnight, and he is feeling somewhat better. This morning his pulse rate was rapid, about 120. We recommended transfer to the stepdown unit for IV Cardizem. The patient is feeling somewhat better. His rate has dropped now into the upper 90s. The patient's past history is positive for severe coronary heart disease. The patient underwent a heart catheterization by Dr. Quirino Salazar, I believe, back in April of 2016. That study showed calcific coronary artery disease, 3 vessel. The patient was sent to [facility] for evaluation, and Dr. Butler on 05/07/2016 performed a coronary revascularization procedure including a mammary artery to LAD and a vein graft to the first marginal branch of the circumflex. The right coronary artery could not be grafted. It was extremely calcified. The patient since then has gradually improved although at times he has noted recurrence of the palpitations and, when that happens, he gets short of breath. He underwent ligation of the atrial appendage and also a mini Maze procedure at the time of this open heart procedure. He has history of hypertension. He has diabetes mellitus type 2. He has hyperlipidemia, gastric reflux, anemia, benign prostatic hypertrophy. He has had previous atrial fibrillation. Surgical history besides the bypass include left total knee arthroplasty, lumbar surgery , cholecystectomy, cataract extraction. SOCIAL HISTORY: He is , retired, lives at home. He quit smoking 13 years ago. Not a drinker. HOME MEDICATIONS: His home medications at the time of the present admission included: 1. Flomax 0.4 daily. 2. Zoloft 100 mg daily. 3. Xarelto 15 mg at bedtime. 4. Pravastatin 80 mg at bedtime. 5. Potassium chloride 10 mEq daily. 6 Omeprazole 40 mg daily. 7. Metoprolol 25 twice a day. 8. Lisinopril 2.5 at bedtime. 9. Iron carbamyl twice a day. 10.Insulin Levemir 6 units in the morning. 11.Furosemide 40 mg in the morning. 12.Donepezil 5 mg at bedtime. 13.Keflex 500 twice a day. 14.Aspirin 81 mg in the morning. ALLERGIES: He has no reported allergies. REVIEW OF SYSTEMS: No obvious abnormality besides what I have reported. He has good appetite, sleeps well. He has no tired issues. No kidney failure. No kidney stones. No peptic ulcer. No recent pneumonia. No strokes recently, although there was one instance of an intracranial bleed, probably embolic stroke. At some point they had to discontinue Coumadin on him. PHYSICAL EXAMINATION: Vital signs: Blood pressure 134/87, pulse 130 this morning, now it is down to 96, temperature 98.9, respirations 20. General: He is awake, alert, oriented, sitting upright eating his lunch. HEENT: Unremarkable. Chest: Shows diffusely diminished breath sounds at the bases. Occasional rales over the left base. Cardiac: Heart sounds are irregularly irregular. I do not hear a gallop or murmur. Abdomen: Obese, nontender. No masses or hepatomegaly. Extremities: Showed 1+ brawny edema. Pulses are diminished in the extremities. Neurologic: He follows commands. Moves four extremities. He has no obvious deficits. IMPRESSION: 1. Patient presenting with congestive heart failure exacerbation. This is probably diastolic dysfunction. It probably relates to the arrhythmia. He has atrial fibrillation/flutter on his EKG. 2. Severe coronary heart disease status post double bypass surgery on 2016. 3. History of hypertension. 4. History of diabetes mellitus type 2. RECOMMENDATIONS: At this point in time, we will manage him with Cardizem and digoxin. I will consider the addition of low-dose amiodarone to optimize his heart rate. will use loop diuretics as needed to achieve euvolemia. We may consider DCCV. Further advice will be forthcoming. Thank you again for the opportunity to participate in his evaluation. Best regards, cc: Frandy Hernandez MD MTDD
[2016-07-17] MEDS ORDERED: LANOXIN IV ONE (18:00)
[2016-07-17] MEDS: PRAVACHOL PO SCH (21:02)
[2016-07-17] MEDS: ARICEPT PO SCH (21:02)
[2016-07-17] MEDS: PRINIVIL PO SCH (21:03)
[2016-07-17] MEDS: ICAR-C PLUS PO SCH (21:03)
[2016-07-17] MEDS: XARELTO PO SCH (21:03)
[2016-07-18] MEDS ORDERED: CARDIZEM 100 MG/NS 100 MG/100 ML IVPB IV SCH (01:39)
[2016-07-18] MEDS: DUONEB (A & A) INH SCH ×6 (03:59→23:49)
[2016-07-18 05:17] LABS: HEMATOCRIT 36.4 % (42.0-52.0); HEMOGLOBIN 10.6 g/dL (14.0-18.0); MCH 25.9 PG (27-31); MCHC 29.1 g/dL (33-37); RBC 4.09 XMIL (4.7-6.1)
[2016-07-18 05:45] LABS: AGAP 12; BUN 13 mg/dL (8-22); CALCIUM 9.1 mg/dL (8.8-10.2); CHLORIDE 105 mmol/L (98-107); COSMO 290; POTASSIUM 3.5 mmol/L (3.5-5.1); SODIUM 145 mmol/L (136-145); TCO2 28 mmol/L (25-35)
--- NOTE | 2016-07-18 06:11 | EKG Report ---
Test Performed on : 07/18/2016 05:31:21 AM Test Reason : afib Blood Pressure : / mmHG Vent. Rate : 069 BPM Atrial Rate : 267 BPM P-R Int : 000 ms QRS Dur : 104 ms QT Int : 376 ms P-R-T Axes : 000 022 137 degrees QTc Int : 402 ms Atrial flutter. with variable AV block. Nonspecific T wave abnormality Abnormal ECG When compared with ECG of 17-JUL-2016 09:43, (Unconfirmed) No significant change was found Confirmed by Kim HANCOCK, Amadou Massey ([id number]) on 07/18/2016 12:10:35 PM
[2016-07-18] MEDS: LASIX IV SCH ×2 (06:38→17:40)
[2016-07-18] MEDS: HUMALOG SUBQ SCH ×3 (06:41→16:33)
[2016-07-18] MEDS ORDERED: POTASSIUM CHLORIDE 20% LIQUID PO ONE (07:24)
[2016-07-18] MEDS: ALDACTONE PO SCH (08:26)
[2016-07-18] MEDS: FLOMAX PO SCH (08:26)
[2016-07-18] MEDS: ZOLOFT PO SCH (08:26)
[2016-07-18] MEDS: LEVEMIR SUBQ SCH (08:26)
[2016-07-18] MEDS: ASPIRIN PO SCH (08:26)
[2016-07-18] MEDS: PRILOSEC PO SCH (08:26)
[2016-07-18] MEDS: LOPRESSOR PO SCH ×2 (08:26→21:29)
[2016-07-18] MEDS: ICAR-C PLUS PO SCH (08:26)
[2016-07-18] MEDS: CARDIZEM PO SCH ×3 (08:26→21:29)
--- NOTE | 2016-07-18 09:35 | PROGRESS NOTE ---
DATE: 07/18/2016 CHIEF COMPLAINT: Shortness of breath, irregular heartbeat. SUBJECTIVE: Mr. Austin is feeling better today. He is less short of breath. His heart rate appears to be better controlled; however, he is still on the Cardizem drip. The patient was given some doses of digoxin yesterday and he is on low-dose metoprolol. He is in good spirits and he really has no complaints at this time. He wants to go home. OBJECTIVE: Vital signs: Blood pressure is 99/43, temperature 98.4, pulse 68, respirations 18. General: He is awake, alert, oriented, in no distress. HEENT: Unremarkable. Chest: Sounds clear to auscultation and percussion. Peripheral sounds are irregularly irregular. No gallop or murmur is noted. Abdomen: Nontender. No masses, no hepatomegaly. Extremities: Slightly decreased pulses. No significant edema. The extremities are warm. Neurological exam: Follows commands. Moves all 4 extremities. BLOOD WORK: Sodium 145, potassium 3.5, BUN and creatinine are normal. Hemoglobin is 10.6, white count 6110. IMPRESSION: 1. Patient presenting with congestive heart failure which is both systolic and diastolic. Exacerbation probably secondary to fluid overload and his coronary heart disease. 2. Atrial fibrillation with rapid response. This may be contributing to the arrhythmia. 3. Severe coronary heart disease, status post bypass surgery, 05/07. 4. History of hypertension. 5. History of diabetes mellitus type 2. RECOMMENDATIONS: At this point in time, we will add some oral Cardizem to his regimen. We will see how he responds. A chest CT was done yesterday looking for pleural effusion that showed cardiomegaly with pulmonary edema, trace pleural fluid, evidence of granulomatous infection, severe atherosclerosis. In addition to Cardizem, we may want to add spironolactone to his regimen because of his tendency to have low potassium. Due to his low systemic blood pressure, we have to be careful with the doses of the vasodilators and antihypertensive drugs. Thank you again for the opportunity to participate in his evaluation. cc: Frandy Hernandez MD
[2016-07-18] MEDS ORDERED: BENADRYL PO PRN (15:01)
--- NOTE | 2016-07-18 15:51 | PROGRESS NOTE ---
DATE: 07/18/2016 TODAY: Mr. Austin refers to be doing a whole lot better. According to him, his breathing has significantly improved. OBJECTIVE: Vital signs: Blood pressure is 110/59, pulse is 90, respirations 18, temperature is 98.2 degrees. The patient is saturating 98% on 2 L of nasal cannula. General: Mr. Austin is a 75- year-old male. He is in bed, not seemingly distressed. HEENT: Mucosa is pink and moist. Anicteric. Acyanotic. Neck: Supple. I did not appreciate any JVD today. Chest: Air entry is bilaterally reduced. There are diffuse bilateral posterior coarse crepitations. Cardiovascular: Irregularly irregular. No murmurs. No rubs. No gallops. Abdomen: Soft, nontender. Questionable mild hepatomegaly. Extremities: No pedal edema. 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 LABORATORY DATA: WBC 6.11, hemoglobin is 10.6, platelet count is 224,000. Chemistry: Sodium is 143, potassium is 3.2, chloride is 101, bicarb is 27, glucose is 151. CURRENT MEDICATIONS: 1. Albuterol nebs. 2. Aspirin 81 mg. 3. Diltiazem drip. 4. Diltiazem 30 p.o. q.6. Donepezil 5 mg at bedtime. 1. Lasix 40 IV q.12. 2. Levemir 60 units in the morning. 3. Sliding scale 70/30. 4. Lisinopril 2.5 p.o. daily. 5. Metoprolol 25 b.i.d. 6. Pravastatin. 7. Aldactone 25 mg daily. 8. Tamsulosin 0.4 mg daily. ASSESSMENT: 1. Acute respiratory distress on presentation due to pulmonary edema. 2. Acute on chronic congestive heart (both systolic and diastolic heart failure). 3. History of coronary artery disease status post coronary artery bypass graft. 4. Chronic obstructive pulmonary disease. Currently not in exacerbation. 5. Atrial fibrillation/atrial flutter. The patient continues to be in atrial fibrillation but is rate controlled. Cardiology is on board and there some titration down on the Cardizem drip. PLAN: So in general I think Mr. Austin is doing a whole lot better. We are going to continue with the current line of care. Follow up with further recommendations from cardiology. cc: Franki Hyde MD
[2016-07-18] MEDS: ARICEPT PO SCH (21:29)
[2016-07-18] MEDS: PRAVACHOL PO SCH (21:29)
[2016-07-18] MEDS: PRINIVIL PO SCH (21:29)
[2016-07-18] MEDS: XARELTO PO SCH (21:30)
[2016-07-19] MEDS: CARDIZEM PO SCH ×4 (02:08→20:03)
[2016-07-19] MEDS: DUONEB (A & A) INH SCH ×6 (03:10→23:14)
[2016-07-19 05:07] LABS: HEMATOCRIT 36.9 % (42.0-52.0); HEMOGLOBIN 10.8 g/dL (14.0-18.0); MCH 25.9 PG (27-31); MCHC 29.3 g/dL (33-37); MCV 88.5 FL (81-99); MPV 10.3 FL (7.4-10.4); RBC 4.17 XMIL (4.7-6.1)
[2016-07-19 05:32] LABS: AGAP 13; BUN 11 mg/dL (8-22); CALCIUM 9.1 mg/dL (8.8-10.2); CHLORIDE 103 mmol/L (98-107); COSMO 283; POTASSIUM 3.5 mmol/L (3.5-5.1); SODIUM 143 mmol/L (136-145); TCO2 27 mmol/L (25-35)
--- NOTE | 2016-07-19 06:17 | Diag Imaging Result Document ---
PROCEDURE NAME: CHEST-PORTABLE - 07/19/2016 PORTABLE CHEST: COMPARISON: 07/16/2016. FINDINGS: Sternal wires are present. The heart is enlarged. There is vascular distention. I believe there is a small right effusion. Overall, the pulmonary edema is slightly more pronounced. IMPRESSION: Interval worsening.
[2016-07-19] MEDS: HUMALOG SUBQ SCH ×5 (06:39→20:04)
[2016-07-19] MEDS: LASIX IV SCH ×2 (06:43→18:16)
[2016-07-19] MEDS: FLOMAX PO SCH (08:07)
[2016-07-19] MEDS: PRILOSEC PO SCH (08:07)
[2016-07-19] MEDS: LOPRESSOR PO SCH ×2 (08:07→20:03)
[2016-07-19] MEDS: ALDACTONE PO SCH (08:07)
[2016-07-19] MEDS: ASPIRIN PO SCH (08:07)
[2016-07-19] MEDS: ZOLOFT PO SCH (08:07)
[2016-07-19] MEDS: LEVEMIR SUBQ SCH (08:07)
[2016-07-19] MEDS: ICAR-C PLUS PO SCH (10:03)
--- NOTE | 2016-07-19 11:56 | PROGRESS NOTE ---
DATE: 07/19/2016 SUBJECTIVE: Mr. Austin reports he is doing well. He is not having any orthopnea. Breathing has improved. OBJECTIVE: Vital Signs: He is afebrile. Heart rate is 79, blood pressure 116/96. Telemetry seems to show he is in a rate controlled atrial fibrillation. Presently his I's and O's have been significantly negative over the course of the hospitalization. He is negative roughly 5.5 to 6 liters. General: He is in no acute distress. Cardiovascular: He is in an irregularly irregular rhythm. No murmurs. No S3. He has no lower extremity edema. Chest: Exam is clear bilaterally. No increased work of breathing. Abdomen: Soft, nontender, nondistended. No obvious organomegaly. Skin Exam: Warm and dry throughout. PERTINENT DATA: His white count is 5.7, hematocrit 37, platelet count 232. Sodium is 143, potassium 3.5, BUN 11, creatinine 0.6. ASSESSMENT: 1. Systolic and diastolic heart failure. 2. Atrial fibrillation. PLAN: Patient is doing much better. He has had an increase in his medications including diltiazem. He continues on lisinopril at a relatively low dose. He continues on Xarelto. I would continue him on these current medications. He is currently on Lasix at 40 mg b.i.d. I would consider restarting his oral Lasix at 40 mg. from a cardiovascular standpoint, he can likely be discharged home. I will make follow up with [facility] within the next month. cc: Quirino Salazar MD
--- NOTE | 2016-07-19 18:25 | PROGRESS NOTE ---
DATE: 07/19/2016 SUBJECTIVE: Today, Mr. Austin refers to be doing a lot better. He was sitting up in a chair. His diltiazem drip was discontinued last night, and some changes have been done to his medications this morning by Cardiology. OBJECTIVE: Vital signs: Blood pressure is 140/94, pulse of 73, respirations 18, temperature 98. General: Mr. Austin is a 75-year-old, male. He is in bed. Did not seem to be in any remarkable distress. HEENT: Mucosa is pink and moist. Anicteric. Acyanotic. Neck: Supple. Chest: Air entry is bilaterally reduced. There are still some few bibasilar crepitations. Cardiovascular: Irregularly irregular rate control. Abdomen: Soft, nontender. Extremities: 1+ pedal edema. 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 LABORATORY DATA: Reviewed and unremarkable. Chemistry is reviewed completely normal. Patient had a chest x-ray this morning which showed interval worsening. However, clinically patient is doing better. Patient has a total of 180 urine output for a negative balance of 6000. Has an accumulative negative balance of 5920. ASSESSMENT: 1. Acute respiratory distress on presentation due to pulmonary edema. 2. Acute on chronic congestive heart failure (both systolic and diastolic). 3. History of coronary artery disease, status post coronary artery bypass graft. 4. Chronic obstructive pulmonary disease, not in exacerbation. 5. Atrial fibrillation/atrial flutter. This was in rapid ventricular rate. Is currently rate controlled. 6. Diabetes mellitus. We will continue with Detemir and sliding scale insulin. So, in general, I think Mr. Austin is doing a whole lot better. The diltiazem drip has been discontinued. Patient is currently on some oral medications. Lasix has also been switched to p.o. We will observe him on the new changes overnight. If continues to be doing fine, we will be able to discharge him first thing in the morning. cc: Franki Hyde MD
[2016-07-19] MEDS: PRINIVIL PO SCH (20:02)
[2016-07-19] MEDS: ARICEPT PO SCH (20:02)
[2016-07-19] MEDS: XARELTO PO SCH (20:03)
[2016-07-19] MEDS: PRAVACHOL PO SCH (20:03)
[2016-07-20] MEDS: CARDIZEM PO SCH ×2 (01:38→08:55)
[2016-07-20] MEDS: DUONEB (A & A) INH SCH ×3 (03:28→11:10)
[2016-07-20] MEDS: LASIX IV SCH (06:08)
[2016-07-20] MEDS: HUMALOG SUBQ SCH ×2 (06:09→11:20)
[2016-07-20] MEDS: ICAR-C PLUS PO SCH (08:55)
[2016-07-20] MEDS: ASPIRIN PO SCH (08:55)
[2016-07-20] MEDS: FLOMAX PO SCH (08:55)
[2016-07-20] MEDS: ALDACTONE PO SCH (08:55)
[2016-07-20] MEDS: LEVEMIR SUBQ SCH (08:56)
[2016-07-20] MEDS ORDERED: LASIX PO SCH (09:00)
[2016-07-20] MEDS: ZOLOFT PO SCH (09:11)
[2016-07-20] MEDS: LOPRESSOR PO SCH (09:11)
[2016-07-20] MEDS: PRILOSEC PO SCH (09:11)
[2016-07-20] MEDS ORDERED: CARDIZEM CD PO SCH (11:00)
[2016-07-20 12:17] VITALS: BP 112/54
--- NOTE | 2016-07-21 03:49 | DISCHARGE SUMMARY ---
ADMISSION DATE: 07/16/2016 DISCHARGE DATE: 07/20/2016 DISPOSITION: Home. FOLLOWUP: 1. Dr. Hernandez. 2. Dr. Roa. INVASIVE PROCEDURES DONE DURING THIS ADMISSION: None. IMAGING STUDIES OF SIGNIFICANCE: A CT scan of the chest was done which showed cardiomegaly with pulmonary edema and trace pleural effusions, evidence of prior granulomatous infection but no acute pneumonia. ADMISSION DIAGNOSES: 1. Acute on chronic heart failure. 2. Diabetes mellitus. 3. Iron deficiency. 4. Atrial fibrillation/atrial flutter. DISCHARGE DIAGNOSES: 1. Acute respiratory distress on presentation due to pulmonary edema. 2. Acute on chronic congestive heart failure (both systolic and diastolic heart failure). 3. History of coronary artery disease, status post coronary artery bypass graft. 4. Chronic obstructive pulmonary disease, not in exacerbation. 5. Atrial fibrillation/atrial flutter, currently rate controlled. 6. Diabetes mellitus, on insulin therapy. DISCHARGE MEDICATIONS: 1. Insulin, detemir 60 units subcutaneously q.a.m. 2. Sertraline 100 mg p.o. daily. 3. Omeprazole 40 mg daily. 4. Pravastatin 80 mg at bedtime. 5. Donepezil 5 mg p.o. at bedtime. 6. Furosemide 40 mg daily. 7. Tamsulosin 0.4 mg daily. 8. Rivaroxaban 15 mg p.o. daily. 9. Metoprolol 25 mg b.i.d. 10. Lisinopril 2.5 mg daily. 11. Aspirin 81 mg daily. 12. Diltiazem 120 mg daily. 13. Spironolactone 25 mg p.o. daily. RECOMMENDATIONS: To do a BMP in about a week and follow up with Dr. Hernandez and Dr. Roa. PRESENTING COMPLAINT: Shortness of breath. HISTORY OF PRESENTING COMPLAINT: Mr. Austin is a 75-year-old, male who has hypertension and atrial fibrillation, recently had a CABG due to coronary artery disease. Presented to the emergency department because of shortness of breath. A chest x -ray was done which showed pulmonary vascular congestion with cardiomegaly. Patient was admitted for further medical care. HOSPITAL COURSE: The patient was admitted and treated in a regular fashion with diureses, beta blockers, and HEENA inhibitors. Did pretty well. However, during the hospital stay, he had atrial fibrillation, RVR, and had to be transferred to the CCU. Patient was started on a Cardizem drip. The heart rate got controlled. Cardiology made some changes to his medication and he did pretty well. His breathing got a whole lot better. Cardiology from their standpoint recommended patient could be discharged. Today, Mr. Austin refers to be doing okay. Shortness of breath is improved. Denies any chest pain, any cough, or any other complaints. He is tolerating his feeding and he is having regular bowel movements and peeing okay. His vital signs, blood pressure is 133/95, pulse is 87, respirations are 18, temperature is 97.5 degrees. Physical exam is unremarkable. Specifically, the patient does not have any crepitations and does not have any pedal edema. Does not have any signs of fluid overload. His medications have been reviewed. Patient is going to be discharged in very stable condition. He is advised to do a BMP in about a week since he has just been started on spironolactone and he is also on HEENA inhibitor and oral potassium, just to follow on his electrolytes. At the time of discharge, the patient has no complaints and there are not any pending labs. Disposition is home. Follow up with cardiology, Dr. Hernandez and PCP, Dr. Roa. DIET: Cardiac diet. ACTIVITY: As tolerated. Time spent for discharge is 38 minutes. cc: Franki Hyde MD [facility]
== END 2016-07-20 12:22 | disposition home or self-care (01) ==
LOC: 4N 12:50 → ED 12:50 → SUATTDRO 16:44 → OBSVTOIN 16:44 → 4N 17:06 → 3S 07-17 11:32
PROVIDERS: ATTEND Internal Medicine

== ENCOUNTER 2016-08-07 11:40 | Inpatient (IN) ==
[2016-08-07] MEDS ORDERED: NS 1,000 ML IV ONE (12:05)
[2016-08-07] MEDS ORDERED: ROCEPHIN 1 GM/NS 1 GM/50 ML IVPB IV ONE (12:06)
[2016-08-07] MEDS ORDERED: VANCOMYCIN 1 GM/NS 1 GM/250 ML IVPB IV ONE ×2 (12:06→15:30)
--- NOTE | 2016-08-07 12:39 | Diag Imaging Result Doc PS360 ---
EXAM: CHEST-1 VIEW HISTORY: vomiting, chills TECHNIQUE: Portable upright at 1225 COMMENT: There is cardiomegaly. There are sternotomy wires. The lungs appear to be clear. The right base is clear than on 07/19/2016. IMPRESSION: Cardiomegaly. Electronically signed by Renato Miles 08/07/2016 12:37 PM
--- NOTE | 2016-08-07 12:39 | Diag Imaging Result Doc PS360 ---
EXAM: KNEE 3 VIEWS LEFT HISTORY: pain, effusion s/p TKR: ? Hx of trauma TECHNIQUE: Portable three views COMMENT: There is a total knee arthroplasty. There is extensive atherosclerotic calcification present in the superficial femoral popliteal and tibial peroneal arteries. There is no lateral. No definite fracture or dislocation is present. IMPRESSION: No evidence of acute bony disease. Incomplete series. Atherosclerosis. Electronically signed by Renato Miles 08/07/2016 12:36 PM
[2016-08-07 12:40] LABS: ALLEN TEST YES; BE -12.6 mmoll (-3.0-3.0); BLOOD TYPE ARTERIAL; DRAW SITE L RADIAL; METHB 1.1 % (0.0-1.5); O2(CT) 18.9 mL/dL (15.0-23.0); PCO2(98.6) 24 mmHg (35-45); PO2(98.6) 71 mmHg (60-100); SAMPLE BLOOD; SAO2 95.2 % (95.0-100.0); THB 14.5 g/dL (11.5-17.4)
[2016-08-07 12:41] LABS: EOS# 0.01 X1000 (0.0-0.7); EOS% 0.1 % (0.0-10.0); HEMATOCRIT 46.5 % (42.0-52.0); HEMOGLOBIN 14.2 g/dL (14.0-18.0); LYMPH# 0.76 X1000 (1.2-3.4); LYMPH% 5.8 % (20.5-51.1); MANUAL DIFF NEEDED? YES; MCHC 30.5 g/dL (33-37); MONO% 7.7 % (1.7-9.3); MPV 11.5 FL (7.4-10.4); NEUT% 86.4 % (42.2-75.2); PLT 205 X1000 (130-400); RBC 5.47 XMIL (4.7-6.1)
[2016-08-07 12:41] LABS: MODALITY ROOM AIR
[2016-08-07 12:56] LABS: ALBUMIN 4.1 g/dL (3.5-5.0); CALCIUM 8.8 mg/dL (8.8-10.2); MAGNESIUM 1.7 mg/dL (1.5-2.7); POTASSIUM 2.9 mmol/L (3.5-5.1); TOTAL BILIRUBIN 0.64 mg/dL (0.20-1.00); TOTAL PROTEIN 8.7 g/dL (6.3-8.3)
[2016-08-07 13:02] LABS: LYMPHS 8 % (21-51); MONO 3 % (1-9)
[2016-08-07] MEDS ORDERED: SODIUM BICARBONATE 8.4% IV PUSH ONE (13:21)
[2016-08-07] MEDS ORDERED: POTASSIUM CHLORIDE 60 MEQ in NS 500 ML IV ONE (13:22)
[2016-08-07 13:39] LABS: SED RATE 17 mm/hr (0-15)
[2016-08-07] MEDS ORDERED: TYLENOL PO PRN (15:04)
[2016-08-07] MEDS ORDERED: VANCOMYCIN IV PER PHARMACY MISC SCH (15:04)
[2016-08-07] MEDS ORDERED: ZOFRAN IV PRN (15:04)
[2016-08-07] MEDS: ZOSYN 3.375 GM/NS 3.375 GM/50 ML IVPB IV SCH ×2 (16:00→20:57)
[2016-08-07] MEDS ORDERED: NS 1,000 ML IV SCH (16:27)
[2016-08-07 17:01] LABS: ACETONE SERUM NEGATIVE (NEGATIVE)
[2016-08-07 17:09] LABS: ACETAMINOPHEN < 1.2 ug/mL (10-30)
--- NOTE | 2016-08-07 17:13 | HISTORY AND PHYSICAL ---
PRIMARY CARE PROVIDER: Shirley Roa MD. PRIMARY ALL SOURCE COLLECTION MANAGER: Dr. Bertram Magdaleno. CHIEF COMPLAINT: Left knee pain. HISTORY OF PRESENT ILLNESS: Mr. Austin is a 75-year-old male with a history of diabetes type 2, atrial fibrillation, hypertension, COPD, uses oxygen at night, and severe CAD, presents with complaints of left knee pain and swelling. He states that this has been going on for about 2-3 days. It is warm and it is swollen. Imaging of the knee shows no evidence of acute bony disease and it shows arthrosclerosis, although there is obviously cellulitis around the left knee. There are no open wounds. He also states that he has had some diarrhea with vomiting over the last day and chills with shivers. He states that the diarrhea is normal in color but the vomiting is like a white- palomares color. There is concern for septic knee of the left knee and will consult ortho. Other findings are a blood glucose level of 99, pH 7.3, and a bicarb level of 15. He appears to have some CLAU with a creatinine of 1.6 where his baseline is normal. He will be admitted to the ICU with a diagnosis of DKA, possible left knee sepsis, and CLAU. PAST MEDICAL HISTORY: 1. Severe coronary artery disease status post CABG in April of 2016. 2. COPD on 2 L nasal cannula at night. 3. Diastolic congestive heart failure. Last ejection fraction was 50%. 4. Hypertension. 5. Diabetes mellitus type 2. 6. Hyperlipidemia. 7. History of intracranial bleed but patient states no residual. 8. Atrial fibrillation, chronic. 9. GERD. 10. Iron deficiency anemia. PAST SURGICAL HISTORY: 1. CABG in April of 2016. 2. Multiple back surgeries. 3. Left knee arthroplasty. 4. Cholecystectomy. 5. Cataract surgery. SOCIAL HISTORY: He quit drinking, smoking, or any times drugs 14 years ago. His daughter is at the bedside. He is retired. FAMILY HISTORY: Positive for coronary artery disease, heart attacks, stomach cancer, and diabetes. REVIEW OF SYSTEMS: Fourteen point review of systems were complete and all were negative except for those mentioned in the above HPI. ALLERGIES: No known drug allergies. HOME MEDICATIONS: Aspirin 81 mg p.o. daily, diltiazem 120 mg p.o. daily, Aricept 5 mg p.o. nightly, Lasix 40 mg p.o. daily, Levemir 60 units subcutaneous every a.m., FEC Plus tablet 1 p.o. twice daily, lisinopril 2.5 mg p.o. nightly, metoprolol 25 mg p.o. twice daily, omeprazole 40 mg p.o. daily, potassium chloride 10 mEq p.o. daily, pravastatin sodium 80 mg p.o. nightly, Xarelto 15 mg p.o. nightly, Zoloft 100 mg p.o. daily, Aldactone 25 mg p.o. daily, and Flomax 0.4 mg p.o. daily. PHYSICAL EXAMINATION: VITAL SIGNS: Temperature is 98.1 degrees, heart rate 89, respiratory rate 18, blood pressure 133/73, O2 saturation 96% on room air. He is 5 feet 9 inches tall, 247 pounds, BMI 36.5. GENERAL: Mr. Jan Austin is a 75-year-old male. He is in no acute distress. He is able answer to questions appropriately. HEENT: Atraumatic, normocephalic. Pupils equal, round, reactive to light. Extraocular movements are intact. NECK: No JVD or carotid bruits noted. CARDIOVASCULAR: Irregularly irregular rate and rhythm. No rubs, gallops, murmurs. PULMONARY: Clear to auscultation. Bilateral breath sounds. No accessory muscle use or work of breathing noted. GI: Soft, nontender, nondistended. Positive bowel sounds x4. EXTREMITIES: Trace lower extremity edema. There are +2 dorsalis and radial pulses. NEUROLOGIC: A O x4. Moves all extremities equally. SKIN: Warm, dry, intact. LABORATORY DATA: White blood cells 13,000, hemoglobin 14, hematocrit 46, platelet count 205,000. PH 7.3, pCO2 24, PO2 71, bicarb 15, lactate 1.6; this is on room air. Sodium 136, potassium 2.9, BUN 36, creatinine is 1.6, glucose 199, magnesium 1.7. Bilirubin 0.64, AST 24, ALT 31. Troponin less than 0.01. CRP is 88. Amylase 17. Lipase 6. Urinalysis pending. Other urine studies are pending. IMAGING: Chest x-ray showed cardiomegaly but lungs were clear. Knee a x-ray, left knee, no evidence of acute bony disease. He had a complete series. Atherosclerosis. EKG was atrial fibrillation/flutter. ASSESSMENT AND PLAN: 1. Possible septic left knee. Ortho has consulted. Will do vancomycin and Zosyn. He does have an elevated white blood cell count. 2. Leukocytosis. He is afebrile but will go ahead and get urinalysis, blood cultures. Chest x- ray was clear of pneumonia. Again, he does have the left knee cellulitis and so he will be on vancomycin and Zosyn for now. 3. Diabetic ketoacidosis, low grade, with diabetes mellitus type 2. We will do DKA protocol for now and follow metabolic acidosis. 4. Chronic obstructive pulmonary disease. No exacerbation. Continue home oxygen at night. 5. Congestive heart failure, diastolic. Will be holding off on Lasix for now. He will be receiving IV fluids. 6. Acute kidney injury. No history of CKD. Will do urine electrolytes and labs. He will be receiving IV fluids but we will have to monitor closely secondary to his congestive heart failure. 7. Hypertension. Stable. 8. Hyperlipidemia. Hold medications. 9. History of intracranial bleed. 10. Atrial fibrillation/flutter. Rate is controlled. 11. Gastroesophageal reflux disease. 12. Iron-deficiency anemia. Hemoglobin hematocrit are stable. 13. Deep venous thrombosis prophylaxis. SCDs. 14. Gastrointestinal prophylaxis. Proton pump inhibitor. Dictated by RAHEEM Zarate for Franki Hyde MD cc: RAHEEM Zarate MD Kathy J. Sparacino, MD
[2016-08-07 18:43] LABS: URINE MICRO REVIEW NEEDED? NO; URINE SOURCE VOIDED
[2016-08-07 18:50] LABS: BILIRUBIN URINE NEGATIVE (NEGATIVE); BLOOD URINE TRACE (NEGATIVE); COLOR YELLOW; GLUCOSE URINE NEGATIVE (NEGATIVE); LEUKOCYTES URINE NEGATIVE (NEGATIVE); NITRITE URINE NEGATIVE (NEGATIVE); PROTEIN URINE 50 mg/dL (NEGATIVE); SP GRAVITY URINE 1.021; TURBIDITY URINE HAZY (CLEAR); UROBILINOGEN URINE NORMAL (NORMAL)
[2016-08-07 18:52] LABS: UR EPITHELIAL CELLS <10 /HPF (<10); URINE BACTERIA NEGATIVE /HPF; URINE RBC <10 /HPF (<10); URINE WBC <10 /HPF (<10)
[2016-08-07 19:08] LABS: UR CREAT RANDOM 126.4 mg/dL (14-26); UR SODIUM < 10 mmoll; UR UREA NITROGEN RANDOM 1076 mg/dL
[2016-08-07] MEDS: ICAR-C PLUS PO SCH (20:56)
[2016-08-07] MEDS: SODIUM CHLORIDE 0.9% INJ SCH (20:56)
[2016-08-07] MEDS: PROTONIX IV SCH (20:57)
[2016-08-07] MEDS: PRAVACHOL PO SCH (20:57)
[2016-08-07] MEDS: XARELTO PO SCH (20:58)
[2016-08-07] MEDS: ARICEPT PO SCH (20:58)
[2016-08-07] MEDS: LOPRESSOR PO SCH (21:02)
--- NOTE | 2016-08-07 22:18 | CONSULTATION ---
DATE OF CONSULTATION: 08/07/2016 REASON FOR CONSULT: Possible septic left knee. HISTORY OF PRESENT ILLNESS: Mr. Austin is a 75-year-old male with a history of chronic atrial fibrillation, hypertension, COPD, and coronary artery disease, who had a recent coronary artery bypass grafting in April of this year. He presented to the ER with complaints of weakness, fatigue and pain to his left knee. He also describes nausea and vomiting. He does state that he has a history of a left knee arthroplasty in 1985. He says he has noticed pain and swelling to the knee for the last 2 days. He reports no initial injury that he can remember. [facility] has been consulted by Dr. Hyde to further evaluate possible septic left knee. PAST MEDICAL HISTORY: 1. Severe coronary artery disease status post coronary artery bypass grafting in April of this year. 2. COPD on home O2. 3. Congestive heart failure, diastolic. Last documented EF is 50%. 4. Primary essential hypertension. 5. Diabetes mellitus type 2. 6. Hyperlipidemia. 7. History of intracranial bleed. 8. Chronic atrial fibrillation. 9. Gastroesophageal reflux disease. 10.Iron-deficiency anemia. PAST SURGICAL HISTORY: 1. Coronary artery bypass grafting. 2. Left knee arthroplasty in 1985. 3. Multiple back surgeries. 4. Cholecystectomy. 5. Cataract surgery. SOCIAL HISTORY: The patient states he quit smoking 13 or 14 years ago. He denies any excessive alcohol abuse. He denies any illicit drug use. He lives with his . FAMILY HISTORY: Significant for coronary artery disease, myocardial infarction, stomach cancer, and diabetes. REVIEW OF SYSTEMS: A 14-point review of systems was obtained and found to be negative except for what was mentioned in the history of present illness and noted in the physical exam. PHYSICAL EXAMINATION: General: The patient is awake, alert, and lying in bed. He is able to answer questions appropriately. Musculoskeletal: Physical exam of the left lower extremity does reveal severe tenderness to palpation to the lateral aspect of the knee. There is no notable redness, open areas, or any drainage, however, he does have a fair amount of edema. He has good peripheral pulses. He has good sensation to the lower extremities. He has fair range of motion of the knee although it does cause him pain. IMAGING: A 3-view of the left knee does show a total knee arthroplasty. No evidence of acute bony disease per Radiology. It does show some atherosclerotic calcification. ASSESSMENT: Possible left knee infection. PLAN: Dr. Holbrook did perform a joint aspiration at the bedside. A fair amount of purulent drainage was removed. This has been sent for Gram stain and culture. We will make Mr. Austin n.p.o. after midnight for possible arthroscopic lavage if indicated. We also do agree with IV antibiotics. Further hospital course and management will depend on results of Gram stain and culture as well as his response to antibiotics. Dictated by RAHEEM Vega for Vadim Holbrook MD cc: RAHEEM Vega MD
[2016-08-08] MEDS: ZOSYN 3.375 GM/NS 3.375 GM/50 ML IVPB IV SCH ×3 (03:07→15:23)
[2016-08-08 06:27] LABS: MANUAL DIFF NEEDED? NO
[2016-08-08 06:41] LABS: BASO% 0.1 % (0.0-0.8); EOS# 0.03 X1000 (0.0-0.7); EOS% 0.4 % (0.0-10.0); HEMATOCRIT 40.4 % (42.0-52.0); HEMOGLOBIN 12.4 g/dL (14.0-18.0); LYMPH# 1.37 X1000 (1.2-3.4); LYMPH% 18.7 % (20.5-51.1); MCH 25.6 PG (27-31); MCHC 30.7 g/dL (33-37); MCV 83.5 FL (81-99); MONO# 0.75 X1000 (0.11-0.59); MONO% 10.2 % (1.7-9.3); MPV 10.5 FL (7.4-10.4); NEUT% 70.6 % (42.2-75.2); PLT 153 X1000 (130-400); RBC 4.84 XMIL (4.7-6.1)
[2016-08-08 06:45] LABS: INR 1.49; PTT 36.4 Seconds (22.0-36.0)
[2016-08-08 06:46] LABS: AGAP 16; ALBUMIN 3.1 g/dL (3.5-5.0); ALKALINE PHOSPHATASE 53 U/L (32-122); BUN 20 mg/dL (8-22); CALCIUM 8.4 mg/dL (8.8-10.2); CHLORIDE 111 mmol/L (98-107); COSMO 288; GOT 20 U/L (10-34); GPT 21 U/L (10-44); MAGNESIUM 1.7 mg/dL (1.5-2.7); SODIUM 143 mmol/L (136-145); TCO2 16 mmol/L (25-35); TOTAL BILIRUBIN 0.58 mg/dL (0.20-1.00); TOTAL PROTEIN 6.5 g/dL (6.3-8.3)
[2016-08-08] MEDS ORDERED: MAGNESIUM SULFATE 2 GM/S.W.I. 2 GM/50 ML IVPB IV ONE (08:17)
[2016-08-08] MEDS ORDERED: 1/2 NS + KCL 20 MEQ 1,000 ML IV SCH ×2 (08:17→13:00)
[2016-08-08] MEDS: MORPHINE IV PRN (08:22)
[2016-08-08] MEDS: SODIUM CHLORIDE 0.9% INJ SCH ×2 (08:23→20:02)
[2016-08-08] MEDS: PROTONIX IV SCH ×2 (08:23→20:02)
[2016-08-08 09:28] LABS: DIFF NEEDED? YES; WBC BF 81620 /cumm
[2016-08-08 09:48] LABS: MONOS 10 %; POLYS 90 %
[2016-08-08] MEDS ORDERED: SENSORCAINE 0.5%-EPI 1:200,000 ONE (10:32)
[2016-08-08] MEDS ORDERED: NEOSPORIN G.U. IRRIGANT ONE (11:02)
--- NOTE | 2016-08-08 11:04 | PROGRESS NOTE ---
DATE: 08/08/2016 SUBJECTIVE: Mr. Austin got admitted yesterday mainly because he was having issues with his left knee. He also did complain of some nausea and vomiting. Upon examination he was found to have left knee swelling suspicious for septic knee and he was admitted for further medical care. Today he refers to be doing a whole lot better. He continues to have some left knee discomfort but not as much as yesterday. OBJECTIVE: Vital signs: Blood pressure is 121/81, pulse of 98, respiration is 16, temperature 97.7 degrees. General: Mr. Austin is a 75-year-old male. He is in bed, no distress. HEENT: Mucosa is pink and moist. Anicteric. Acyanotic. Neck: Supple. Chest: Good air entry bilaterally. No crepitations. No rhonchi. Cardiovascular: Regular rate and rhythm. Abdomen: Soft, nontender. Extremities: No pedal edema. The left knee is slightly swollen and mildly tender. There is an old scar over the knee consistent with previous knee surgery. GEOPHYSICAL ENGINEER: Patient is alert and oriented x4. There is no focal neurological deficit. LABORATORY DATA: WBC is down to 7.33, hemoglobin is 12.4, platelet count of 153,000. Sodium is 143, potassium is 3.0, chloride is 100, bicarb is 16; this is slightly improved from yesterday. BUN is 20. Creatinine has normalized to 0.8. Uric acid is 4.5. The fluid analysis of the knee shows WBC of 81,620 with white cell of 90% and mononuclear cells of 10%. Fluid crystal is still pending. ASSESSMENT: 1. Left septic knee. The patient is currently on antibiotics including Zosyn and vancomycin. The patient does have hardware in that knee. My understanding is that orthopedics is taking him in for arthroscopic evaluation and possible washout. I think the patient will need long- term antibiotics because of the hardware; that is if the hardware does not have to come out. We will consult ID to evaluate the patient and give some recommendations on antibiotic choices and care after discharge. 2. High anion gap metabolic acidosis. We think this was probably multifactorial including renal component and some dehydration. This seems to have improved with hydration. 3. Acute kidney injury. This has also improved. The patient's lisinopril has been withheld and also the diuretics have been withheld. We will reintroduce these medications at a later date when she is euvolemic and after the surgery. 4. History of congestive heart failure, known. 5. Paroxysmal atrial fibrillation/atrial flutter. Patient was just discharged from the hospital on 07/20/2016 for CHF exacerbation due to atrial fibrillation/atrial flutter which was controlled. We will restart his medications after the surgery. 6. Diabetes mellitus. Will control this with insulin sliding scale. 7. Xarelto will be withheld this morning because of the procedure. We will re-administer that once the procedure is over. cc: Franki Hyde MD
[2016-08-08] MEDS ORDERED: KETAMINE (DOSE) ONE (11:36)
[2016-08-08] MEDS ORDERED: DIPRIVAN 1% ONE (11:37)
--- NOTE | 2016-08-08 11:41 | OPERATIVE NOTE ---
PROCEDURE DATE: 08/07/2016 DATE OF SURGERY: 08/07/2016. PREOP DIAGNOSIS: Septic left knee. POSTOPERATIVE DIAGNOSIS: Septic left knee. PROCEDURE: Arthroscopic lavage of left knee with drain placement. SURGEON: Tushar Holbrook MD. BRIQUETTE MACHINE OPERATOR: Christoph Delaney. ANESTHESIA: General. COMPLICATION: None. PROCEDURE IN DETAIL: This 75-year-old ICU patient with septic left total knee presents for just arthroscopic lavage and debridement. Risks, benefits and no guarantees were discussed, and he is willing to proceed. The patient was taken to the operating room and satisfactory anesthesia obtained. The left knee was prepped and draped in usual sterile fashion. Esmarch was used to exsanguinate extremity after the time-out, and tourniquet inflated 350 mmHg. A superior medial inflow portal was established into the suprapatellar pouch, and a purulent fluid expressed. The anterior lateral portal was then used as an exit portal, and roughly 6 liters of irrigant flushed through the knee. The arthroscope was introduced and joint replacement noted to be relatively intact with synovitis around this. After arthroscopic lavage, 2 drains were placed through the portals and the portals closed with 3-0 nylon. The patient was then recovered from anesthesia and sterile dressings applied and transferred back to the ICU in stable condition. No intraoperative complications were noted. Instrument count and sponge count were correct at time of closure. cc: Vadim Holbrook MD
[2016-08-08] MEDS ORDERED: EPHEDRINE ONE (11:42)
[2016-08-08] MEDS ORDERED: TORADOL ONE (11:42)
[2016-08-08] MEDS ORDERED: OFIRMEV 1000 MG/ISOTONIC SOLN 1,000 MG/100 ML BOTTLE ONE (11:42)
[2016-08-08] MEDS ORDERED: XYLOCAINE-MPF 2% ONE (11:42)
[2016-08-08] MEDS ORDERED: LR 1,000 ML ONE (11:43)
[2016-08-08] MEDS: CARDIZEM CD PO SCH (12:12)
[2016-08-08] MEDS: ASPIRIN PO SCH (12:12)
[2016-08-08] MEDS: POTASSIUM CHLORIDE 20 MEQ/SWI 20 MEQ/100 ML IVPB IV SCH ×2 (12:12→15:29)
[2016-08-08] MEDS: FLOMAX PO SCH (12:12)
[2016-08-08] MEDS: LOPRESSOR PO SCH ×2 (12:12→20:22)
[2016-08-08] MEDS: ZOLOFT PO SCH (12:12)
[2016-08-08] MEDS: ICAR-C PLUS PO SCH ×2 (12:12→20:22)
[2016-08-08] MEDS: HUMULIN R SUBQ SCH ×2 (15:38→21:00)
[2016-08-08] MEDS: VANCOMYCIN 1,500 MG in NS 250 ML IV SCH (17:07)
--- NOTE | 2016-08-08 19:04 | CONSULTATION ---
DATE OF CONSULTATION: 08/08/2016 CONCLUSION: The patient has a septic left knee arthritis with involvement of the total knee arthroplasty. RECOMMENDATIONS: I agree with treating with vancomycin. I have substituted cefepime for Zosyn pending culture results. DISCUSSION: This gentleman tells me that approximately a week ago he started having intense pain and swelling in his left knee. It was so painful that he could not even walk on it. He was admitted to the hospital. His synovial fluid shows a white blood cell count of 81,620 of which 90% were segmented neutrophils. The fluid was negative for crystals. Patient's CBC shows a white count of 7330, hemoglobin 12.4, and platelet count 153,000. Creatinine is 0.8. Liver function studies are normal. Blood and synovial fluid thus far on culture are negative. PAST MEDICAL HISTORY/REVIEW OF SYSTEMS: Eyes and Ears: He denies difficulty hearing or seeing. Neck: No stiffness. Pulmonary: No cough or shortness of breath. Cardiovascular: No chest pain or palpitations. GI: No nausea, vomiting, or diarrhea. : No dysuria or flank pain. Endocrine: Patient is diabetic but does not have thyroid disease. Bones, joints, muscles: Please see present illness. Integument: No rash. PREVIOUS HOSPITALIZATIONS AND OPERATIONS: He has had a left total knee arthroplasty, coronary artery bypass grafting, three lumbar laminectomies and a rectal surgery. MEDICAL DISEASES: Positive for diabetes mellitus, hypertension, osteoarthritis , stroke, gastroesophageal reflux disease, depression and dementia. INFECTIOUS DISEASE HISTORY: Negative for pneumonia and UTI. FAMILY HISTORY: Positive for diabetes mellitus, hypertension, myocardial infarction, and stroke. SOCIAL HISTORY: [place] He is . Does not have any pets at home. ALLERGIES: He is not allergic to any medicines. HIS HOME MEDICINES INCLUDE: Flomax, Aldactone, Zoloft, Xarelto, pravastatin, Lopressor, lisinopril, insulin, Lasix, Aricept, Cartia and aspirin. PHYSICAL EXAMINATION: Vital Signs: Temperature is 97.2 degrees, pulse 71, respirations 16, blood pressure 111/64. Patient's weight is listed as 232 pounds. General: This is a somewhat chronically ill-appearing, elderly male. He is in no acute distress. Head, eyes, ears, nose, and throat: He is missing most of his teeth. Upper dentures are present. He can hear my spoken words. He can see near objects. No drainage noted from the nose or ears. Neck: No meningismus. Thorax: No increased AP diameter of the chest. Lungs: Clear to auscultation. Cardiovascular: Heart rate was at times regular and at other times, was slightly irregular. Abdomen: Soft, without masses or tenderness. Extremities: There is a large dressing around the left knee. The dressing is intact. Neurologic: Patient is alert. He can move his extremities. There is no tremor. His sensation is intact to touch. His memory, as regarding his medical history, was slightly diminished. Thank you for the consult. cc: Joseph Draper MD MTDD
[2016-08-08] MEDS: MAXIPIME 2 GM/NS 2 GM/100 ML IVPB IV SCH (20:02)
[2016-08-08] MEDS: XARELTO PO SCH (20:22)
[2016-08-08] MEDS: ARICEPT PO SCH (20:22)
[2016-08-08] MEDS: PRAVACHOL PO SCH (20:23)
[2016-08-09] MEDS: MORPHINE IV PRN ×3 (00:46→16:13)
[2016-08-09 05:07] LABS: MANUAL DIFF NEEDED? NO
[2016-08-09 05:10] LABS: BASO% 0.2 % (0.0-0.8); EOS# 0.25 X1000 (0.0-0.7); HEMOGLOBIN 10.9 g/dL (14.0-18.0); LYMPH# 1.11 X1000 (1.2-3.4); LYMPH% 17.9 % (20.5-51.1); MCH 25.6 PG (27-31); MCHC 30.3 g/dL (33-37); MCV 84.5 FL (81-99); MONO# 0.44 X1000 (0.11-0.59); MONO% 7.1 % (1.7-9.3); MPV 11.3 FL (7.4-10.4); NEUT% 70.8 % (42.2-75.2); PLT 151 X1000 (130-400); RBC 4.26 XMIL (4.7-6.1)
[2016-08-09 05:39] LABS: AGAP 12; BUN 14 mg/dL (8-22); CALCIUM 8.4 mg/dL (8.8-10.2); CHLORIDE 112 mmol/L (98-107); COSMO 285; POTASSIUM 3.7 mmol/L (3.5-5.1); SODIUM 142 mmol/L (136-145); TCO2 18 mmol/L (25-35)
[2016-08-09] MEDS: HUMULIN R SUBQ SCH ×4 (06:21→21:52)
[2016-08-09] MEDS ORDERED: SODIUM CHLORIDE 0.9% 10 ML ONE (08:34)
[2016-08-09] MEDS: LOPRESSOR PO SCH ×2 (08:38→20:01)
[2016-08-09] MEDS: ZOLOFT PO SCH (08:38)
[2016-08-09] MEDS: ASPIRIN PO SCH (08:38)
[2016-08-09] MEDS: FLOMAX PO SCH (08:38)
[2016-08-09] MEDS: PROTONIX IV SCH ×2 (08:38→20:00)
[2016-08-09] MEDS: CARDIZEM CD PO SCH (08:38)
[2016-08-09] MEDS: ICAR-C PLUS PO SCH ×2 (08:38→20:01)
[2016-08-09] MEDS: MAXIPIME 2 GM/NS 2 GM/100 ML IVPB IV SCH ×2 (08:41→20:00)
[2016-08-09] MEDS ORDERED: NS 250 ML ONE (10:12)
--- NOTE | 2016-08-09 10:12 | PROGRESS NOTE ---
DATE: 08/09/2016 SUBJECTIVE: Today Mr. Jan Austin refers to be doing a whole lot better. Denies any acute complaints. He has been able to tolerate his breakfast this morning and he also refers to have a regular bowel movement. He underwent the left arthroscopic lavage yesterday successfully. OBJECTIVE: Vital Signs: Blood pressure is 104/53, pulse of 80, respirations 15, temperature is 98.3 degrees. Patient is saturating 99% on room air. General: Mr. Austin is a 75-year-old male. He is in bed, not in any distress. HEENT: Mucosa is pink and moist. Anicteric. Acyanotic. Neck: Supple. Chest: There is an old sternotomy scar consistent with open heart surgery before. Respiratory: Air entry is bilaterally reduced. I did not hear any crepitations or rhonchi. Cardiovascular: Regular rate and rhythm. Occasional extrasystolic beats. No murmurs, no rubs. Abdomen: Soft, nontender. Extremities: No pedal edema. The left knee is wrapped up with sterile dressing and there is a draining system in place. LABORATORY DATA: WBC is 6.19, hemoglobin is 10.9, platelet count of 151,000. Chemistry is reviewed. Sodium is 142, potassium is 3.7, chloride is 112, bicarb is 18, glucose is 124. CURRENT MEDICATIONS: 1. Tylenol p.r.n. 2. Aspirin 81 mg daily. 3. Cefepime 2 g q.12 started yesterday; today is day 1. 4. Diltiazem 120 p.o. daily. 5. Aricept 5 mg at bedtime. 6. Metoprolol 25 b.i.d. 7. Vancomycin 1.5 g q.12 hours. 8. Rivaroxaban. ASSESSMENT: 1. Left septic knee status post arthroscopic lavage. So far, knee cultures are negative. I spoke with Dr. Draper and he plans to treat the patient with an extended period of time with IV antibiotics. We will, therefore, put in a consult for peripherally inserted central catheter line and get him arranged for outpatient antibiotics and hopefully get him discharged soon. 2. Acute kidney injury on presentation. This is resolved. 3. Non anion gap metabolic acidosis with hyperchloremia and borderline hypernatremia. I think this is also due to the IV fluids that the patient is currently on. We will therefore discontinue the saline fluids since patient is drinking well. We will encourage him to drink enough to get himself well hydrated. 4. History of congestive heart failure. Echo in April 2016 before his heart surgery was 35%. 5. History of coronary artery disease status post coronary artery bypass graft. 6. Paroxysmal atrial fibrillation/atrial flutter. Currently rate controlled on diltiazem and metoprolol, and patient uses Xarelto for stroke prophylaxis. 7. Diabetes mellitus, controlled. PLAN: So, in general, I think Mr. Austin is doing a whole lot better. We are going discontinue the Clarke catheter. Discontinue the IV fluids. Encourage the patient to hydrate more orally. Will continue with the current IV antibiotics. We will consult the PICC team to inserted a PICC line for long-term antibiotics. I have discussed this with the patient. I have also consulted with Dr. Draper and he is in agreement. cc: Franki Hyde MD
--- NOTE | 2016-08-09 11:37 | Diag Imaging Result Doc PS360 ---
EXAM: CHEST-PORTABLE INDICATION: PICC line placement TECHNIQUE: One view COMPARISON: 08/07/2016 FINDINGS: There is a newly placed right PICC line. The tip projects over the right atrium approximately 3 cm below the atrial caval junction. There is increased central vasculature suggesting pulmonary venous congestion. There is stable cardiomegaly. Otherwise, no new consolidations are identified. IMPRESSION: 1.Newly placed right PICC line with the tip likely in the right atrium. 2.Cardiomegaly and suggestion of pulmonary venous congestion. Electronically signed by Vadim Gao 08/09/2016 11:34 AM
--- NOTE | 2016-08-09 13:41 | PROGRESS NOTE ---
DATE: 08/09/2016 SUBJECTIVE: Mr. Austin is seen for followup status post I D of the knee. OBJECTIVE: Currently, he is doing relatively well. The drains and bandages can be changed today. ASSESSMENT AND PLAN: Dr. Alanis will be available for me taxation inspector over the weekend. I have discussed with the Infectious Disease doctors suppression of the joint. We will see him again in followup on Friday if needed. We will need to consider possible joint removal in the future on an elective outpatient basis. cc: Vadim Holbrook MD
--- NOTE | 2016-08-09 15:20 | Extremity Venous Study ---
PROCEDURE NAME: Venous U/S Bilateral Legs - 08/07/2016 REQUESTING PHYSICIAN: Dr. Hyde. CONTINUING EDUCATION SPECIALIST: Sarah. INDICATIONS: Edema and pain. PROCEDURE: Bilateral lower extremity venous duplex and color flow imaging. EQUIPMENT: [employer] E-9 ultrasound System with a 9 LD transducer. FINDINGS: Imaging of bilateral lower extremity venous systems were obtained in both sagittal and transverse planes. Doppler was used to evaluate veins for spontaneity, phasicity, respiratory excursion, and digital augmentation. RESULTS: No obvious superficial or deep venous thrombosis noted. There is reflux noted in bilateral common femoral veins. INTERPRETATION: Reflux noted in the bilateral common femoral veins but no obvious superficial or deep venous thrombosis noted on this study. cc: MD Caron Harley CRNP
[2016-08-09] MEDS: VANCOMYCIN 1,500 MG in NS 250 ML IV SCH (16:05)
--- NOTE | 2016-08-09 16:06 | PROGRESS NOTE ---
DATE: 08/09/2016 PRESENT ILLNESS: The patient has septic left knee arthritis with infection involving the total knee arthroplasty in the knee as well. MEDICATIONS: The patient is receiving vancomycin and cefepime. This is day 1 of both antibiotics. PHYSICAL EXAMINATION: Vital Signs: Temperature is 98 degrees, pulse 65, respirations 20, blood pressure 134/69. General: The patient is obese. He is in no acute distress. Lungs: Clear to auscultation. Cardiovascular: Regular heart rate. Abdomen: Soft and nontender. Extremities: The left knee is swollen. The incision is intact. There is a very minimal amount of sanguinous drainage coming from the knee. LAB AND X-RAY: The patient's CBC shows a white count of 6190, hemoglobin 10.9, and platelet count 151,000. Creatinine 0.7. GFR is greater than 60. Blood and knee cultures are negative. ASSESSMENT AND PLAN: The patient has a septic left knee arthritis with infection of the left knee total arthroplasty. The plan is to continue with the current antibiotics, namely vancomycin and cefepime pending culture results. Eventually Dr. Holbrook has told me that once the patient's overall condition improves, he will have to go back in and actually remove the prosthesis and put in an antibiotic-impregnated spacer. COMORBIDITIES: The patient's comorbidities include diabetes mellitus, obesity and also he is elderly. cc: Joseph Draper MD
[2016-08-09] MEDS: SODIUM CHLORIDE 0.9% INJ SCH (20:00)
[2016-08-09] MEDS: XARELTO PO SCH (20:01)
[2016-08-09] MEDS: PRAVACHOL PO SCH (20:01)
[2016-08-09] MEDS: ARICEPT PO SCH (20:01)
[2016-08-10] MEDS: MORPHINE IV PRN (00:01)
[2016-08-10 06:11] LABS: AGAP 13; BUN 9 mg/dL (8-22); CALCIUM 8.6 mg/dL (8.8-10.2); CHLORIDE 108 mmol/L (98-107); COSMO 280; POTASSIUM 3.5 mmol/L (3.5-5.1); SODIUM 141 mmol/L (136-145); TCO2 20 mmol/L (25-35)
[2016-08-10] MEDS: HUMULIN R SUBQ SCH ×2 (06:32→11:33)
[2016-08-10 06:48] LABS: BASO% 0.7 % (0.0-0.8); EOS# 0.26 X1000 (0.0-0.7); EOS% 4.8 % (0.0-10.0); LYMPH# 1.48 X1000 (1.2-3.4); LYMPH% 27.5 % (20.5-51.1); MANUAL DIFF NEEDED? YES; MCH 25.5 PG (27-31); MCHC 30.6 g/dL (33-37); MCV 83.5 FL (81-99); MONO# 0.28 X1000 (0.11-0.59); MONO% 5.2 % (1.7-9.3); MPV 11.1 FL (7.4-10.4); NEUT% 61.8 % (42.2-75.2); PLT 164 X1000 (130-400); RBC 4.31 XMIL (4.7-6.1)
[2016-08-10 07:06] LABS: EOS 6 % (1-10); LYMPHS 24 % (21-51); MONO 6 % (1-9)
[2016-08-10] MEDS: SODIUM CHLORIDE 0.9% INJ SCH (07:59)
[2016-08-10] MEDS: PROTONIX IV SCH (07:59)
[2016-08-10] MEDS: ICAR-C PLUS PO SCH (07:59)
[2016-08-10] MEDS: MAXIPIME 2 GM/NS 2 GM/100 ML IVPB IV SCH (07:59)
[2016-08-10] MEDS: LOPRESSOR PO SCH (07:59)
[2016-08-10] MEDS: CARDIZEM CD PO SCH (07:59)
[2016-08-10] MEDS: FLOMAX PO SCH (07:59)
[2016-08-10] MEDS: ZOLOFT PO SCH (08:00)
[2016-08-10] MEDS: ASPIRIN PO SCH (08:00)
[2016-08-10 11:14] VITALS: BP 143/74
--- NOTE | 2016-08-10 16:39 | DISCHARGE SUMMARY ---
ADMISSION DATE: 08/07/2016 DISCHARGE DATE: 08/10/2016 DISPOSITION: Home with home health. CONSULTATION DURING THIS ADMISSION: 1. Surgery was consulted. Patient was seen by Dr. Holbrook. 2. ID was consulted. Patient was seen by Dr. Draper. INVASIVE PROCEDURES DONE DURING THIS ADMISSION: Left knee arthroscopic lavage was done by Dr. Holbrook on 08/07/2016. IMAGING STUDIES OF SIGNIFICANCE: A knee x-ray was done which did not show any fracture. An extremity venous Doppler was negative for DVT. ADMISSION DIAGNOSES: 1. Possible septic left knee. 2. Leukocytosis. 3. Uncontrolled diabetes mellitus. 4. Chronic obstructive pulmonary disease. 5. Congestive heart failure. DISCHARGE DIAGNOSES: 1. Left septic knee status post arthroscopic lavage, culture negative. 2. Acute kidney injury on presentation, resolved. 3. Congestive heart failure, ejection fraction of 35%. 4. Coronary artery disease status post coronary artery bypass graft. 5. Paroxysmal atrial fibrillation/atrial flutter. Currently controlled on diltiazem and metoprolol. Xarelto for stroke prophylaxis. 6. Diabetes mellitus, controlled. DISCHARGE MEDICATIONS: 1. Insulin Levemir 60 units in the morning and 60 units in the evening. 2. Sertraline 100 mg p.o. q.a.m. 3. Pravastatin 80 mg at bedtime. 4. Donepezil 5 mg daily. 5. Furosemide 40 mg daily. 6. Tamsulosin 0.4 daily. 7. Rivaroxaban 50 mg at bedtime. 8. Metoprolol 25 b.i.d. 9. Iron tablet. 10. Lisinopril 2.5 p.o. at bedtime. 11. Aspirin 81 mg daily. 12. Diltiazem 120 p.o. daily. 13. Spironolactone 25 mg daily. 14. Vancomycin 1500 q.24 hours. 15. Cefepime 2 g q.12 hourly. PRESENTING COMPLAINT: Left knee pain. HISTORY OF PRESENTING COMPLAINT: Mr. Austin is a 75-year-old male with multiple comorbidities, who presented to the emergency department because of left knee pain. Patient was admitted initially to the ICU because of very abnormal vitals and lab work with suspicion of DKA. Consult was placed for orthopedics. Patient was evaluated. There was suspicion for septic knee. Initial arthrocentesis was done which was consistent with septic knee. The patient was taken to OR for arthroscopic lavage which was successfully done. Antibiotics were on board. Eventually patient improved. Dr. Holbrook evaluated the patient and he is with the opinion that somewhere along the line the hardware in the left knee will probably have to be removed at a later date. The patient is going to go home on IV antibiotics for an extended period of time. He will follow up with Dr. Draper and also with Dr. Holbrook. At the time of discharge the patient's vitals, blood pressure is 143/74, pulse of 64, respiration is 20, temperature is 98.2 degrees. The patient is in very stable condition for discharge. Blood work has all been reviewed and they are unremarkable. Other discharge instructions have been discussed with him and he voices understanding of the same. TIME SPENT FOR DISCHARGE: 36 minutes. cc: Franki Hyde MD
--- NOTE | 2016-09-11 10:22 | PROVIDER DOCUMENTATION ---
This chart was entered by Rafaela Barker, acting as scribe for Shane Coulter MD. HPI-General Adult - General Chief Complaint: Vomiting Stated Complaint: knee pain Time Seen by Provider: 08/07/16 11:55 Source: patient, family Allergies/Adverse Reactions: Patient Allergies Allergy/AdvReac Type Severity Reaction Status Date / Time No Known Allergies Allergy Verified 08/30/16 09:54 Home Medications: Home Medication List Medication Instructions Recorded Confirmed Last Taken Type Donepezil [Aricept] 5 mg PO QHS 04/29/16 08/19/16 08/18/16 History Furosemide [Lasix] 40 mg PO QAM 04/29/16 08/19/16 08/18/16 History Insulin Detemir [Levemir] 60 units SUBQ QA 04/29/16 08/19/16 08/18/16 History Omeprazole 40 mg PO QAM 04/29/16 08/19/16 08/18/16 History Potassium Chloride 10 meq PO QAM 04/29/16 08/19/16 08/18/16 History Pravastatin Sodium 80 mg PO QHS 04/29/16 08/19/16 08/18/16 History Sertraline HCl [Zoloft] 100 mg PO QAM 04/29/16 08/19/16 08/18/16 History Tamsulosin [Flomax] 0.4 mg PO QAM 04/29/16 08/19/16 08/18/16 History Rivaroxaban [Xarelto] 15 mg PO 05/31/16 08/19/16 08/18/16 History Aspirin 81 mg PO QAM 07/03/16 08/19/16 08/18/16 History Insulin Detemir [Levemir] 60 unit SUBQ QAM 07/03/16 08/19/16 08/18/16 History Iron,Carbonyl/Vit C/Vit B12/FA [Fe 1 each PO BID 07/03/16 08/19/16 08/18/16 History C Plus Tablet] Lisinopril 2.5 mg PO HS 07/03/16 08/19/16 08/18/16 History Metoprolol [Lopressor] 25 mg PO BID 07/03/16 08/19/16 08/18/16 History Diltiazem HCl [Cartia Xt] 120 mg PO DAILY 60 Days 07/20/16 08/19/16 08/18/16 Rx Spironolactone [Aldactone] 25 mg PO DAILY #60 tablet 07/20/16 08/19/16 08/18/16 Rx Metolazone [Zaroxolyn] 5 mg PO DAILY #30 tablet 08/19/16 Unknown Rx - History of Present Illness -Gen Adult Nature of Presenting Problems: pt is a 75 year old male present to the Er with cc of Left knee pain, pt states he thinks that he bumped his left knee on a desk. Pt has had a total knee replacement on his left knee. Family at bedside states that the pt has been up all nigh complaining of left knee pain and vomiting. pt does not have a local orthopedic, denies chills,, fever, or abdominal pain. Location of Pain/Injury: reports: lower extremity (Left knee pain.) Pain Radiation: reports: no radiation Quality of Pain: reports: sharp Severity: reports: mild Onset/Duration: reports: unsure Timing: reports: still present Context/Activities at Onset: reports: none Modifying Factors: improves with: nothing Associated Symptoms: reports: denies symptoms. denies: chest pain Similar Symptoms Previously?: No Recently seen or treated by another doctor?: No Review of Systems - Adult - REVIEW OF SYSTEMS - ADULT Constitutional: denies: chills, fever Eyes: reports: no symptoms reported Ears, Nose, Mouth & Throat: reports: no symptoms reported Cardiovascular: denies: chest pain, edema Respiratory: reports: no symptoms reported Gastrointestinal: reports: vomiting. denies: hematemesis, constipation, difficulty swallowing Genitourinary: denies: dysuria, discharge, frequency, flank pain, frequent UTI's Musculoskeletal: reports: bone pain, joint pain Integumentary: denies: hair loss, mole changes, nail changes Neurological: denies: ataxia Psychiatric: reports: no symptoms reported Endocrine: reports: no symptoms reported Hematologic/Lymphatic: reports: no symptoms reported Allergic/Immunologic: reports: no symptoms reported All Other Systems: Reviewed and Negative Past History - Adult - PAST MEDICAL HISTORY-ADULT Review of Records: reports: Nursing Assessment Review Major Childhood Illnesses: reports: denies history Cardiovascular: reports: cardiac disease, A-Fib (in past), HTN, hyperlipidemia Respiratory: reports: COPD Gastrointestinal: reports: denies history Obstetrical/Gynecological: reports: denies history Genitourinary: reports: denies history Musculoskeletal: reports: chronic pain, neck/back injury, orthopedic injury Neurological: reports: CVA Psychiatric: reports: denies history Endocrine/Immune: reports: Diabetes Other Conditions: reports: denies history - PRIOR SURGERIES/PROCEDURES Surgical/Procedure History: reports: CABG, cholecystectomy, orthopedic ( extremity) (knee surgery), back/neck (back) - PRIOR HOSPITALIZATIONS Prior Hospitalizations: reports: for similar symptoms - IMMUNIZATION STATUS Childhood Immunizations: See Nurse Assessment Flu Vaccine: See Nurse Assessment - FAMILY HISTORY Family History: reviewed, not pertinent Physical Exam-General - PHYSICAL EXAM-ADULT Initial Vital Signs Reviewed: Yes - CONSTITUTIONAL General Appearance: appears well, alert, no apparent distress - EYES Eyes: PERRL/EOMI, pink conjunctivae - HEAD, EARS, NOSE, MOUTH & THROAT HENMT: moist mucous membranes, normal ENT inspection - NECK Neck: non-tender, full range of motion - RESPIRATORY Respiratory: chest non-tender, lungs clear, normal breath sounds, no pleuratic chest pain, no respiratory distress, no accessory muscle use - CARDIOVASCULAR Cardiovascular: normal peripheral pulses - GASTROINTESTINAL (ABDOMEN) Abdominal Exam: normal bowel sounds, non tender, soft - LYMPHATIC Lymphatic: no adenopathy - MUSCULOSKELETAL Extremity: joint effusion (Warmth effusion Left knee) - SKIN Integumentary: normal color, normal turgor, warm/dry - NEUROLOGIC Neurologic: grossly normal - PSYCHIATRIC Psych/Mental Status: normal mood/affect, normal thought content, normal thought process, oriented x 3 Progress - PLAN OF CARE/RESULTS Progress/Plan/Lab Results: Vital Signs - 8 hr 08/07/16 11:44 Temperature 98.1 F Pulse Rate 53 L Respiratory Rate 20 Blood Pressure 101/58 O2 Sat by Pulse Oximetry 96 Orders Category Date Time Status CBC WITH DIFF [HEME] Stat Lab 08/07/16 11:57 Uncollected COMPREHENSIVE METABOLIC PANEL [CHEM] Stat Lab 08/07/16 11:57 Uncollected MAGNESIUM [CHEM] Stat Lab 08/07/16 11:57 Uncollected SED RATE [HEME] Stat Lab 08/07/16 11:57 Uncollected EKG [EKG] Stat Ther 08/07/16 11:50 Ordered MD spoke with Dr. Hyde concerning Pt condition, Dr. Hyde agrees with admission Result Diagrams: 08/10/16 05:13 05/27/17 05:13 - EKG 1 Time of EKG reading by physician:: 12:03 EKG Read and Signed by:: Shnae Coulter EKG Interpretation (*Must complete 3 of following elements*): Abnormal (Atrial Flutter with variable w/ premature ventricular or aberrantly conducted complexes. possible inferior infarct, age undetermined, ST & T wave abnormality , consider anterolateral ischemia, Prolonged QT, abnormal ECG) Rate: 97 Rhythm: Atrial Flutter QRS: normal Prior EKG Comparison: unchanged from prior (Beside rate) - XRAY 1 XRAY: Bilateral XRAY Study: Chest Impression: Abnormal (cardiomegaly (scalfano)) 2 XRAY Study: Knee Impression: Normal (No evidence of bony disease. Incomplete series. Atherosclerosis) - CONSULTS/PCP/HOSPITALIST Notification #1 *Consult/PCP/Hospitalist*: Dr. Hyde Time Discussed: 13:49 Reason/Comments: DKA Consult Disposition: Admit Departure - Departure Date of Disposition Decision: 07/08/16 Time of Disposition Decision: 11:46 DIAGNOSIS: DKA (diabetic ketoacidoses), Septic arthritis of knee Disposition: ADMITTED INPATIENT 09 Certified Medical Emergency: Emergent Condition: Critical - Critical Care Note This patient required my direct & personal management of CC.: Yes Total Time (mins): 30 Critical Care Statement: This patient required my direct personal management to treat or rule out processes, the absence of which, could potentiallly result in sudden, clinically significant life or limb threatening deterioration. This chart was documented by the indicated scribe, (Rafaela Barker) and accurately reflects the services I performed and decisions made by , Shane Coulter MD, as attested by the provider's signature.
== END 2016-08-10 14:09 | disposition home health service (06) ==
LOC: ED 11:40 → ICU 15:59 → 4N 08-09 13:39
PROVIDERS: ATTEND Internal Medicine